=== PATIENT | female | born 1940 | race Caucasian/White ===

== ENCOUNTER 2022-05-27 13:03 | Outpatient (CLI) | payer MEDICARE, OTHER ==
--- NOTE | 2022-05-27 14:51 | Ultrasound Report ---
PROCEDURE: Duplex Lwr Ext Arterial Bilat INDICATIONS: BILTERAL LEG PAIN TECHNIQUE: Color and pulse Doppler interrogation was performed of both lower extremity arterial systems, with im age documentation. COMPARISON: None FINDINGS: Right lower extremity: Common femoral artery: 119 cm/sec, with triphasic flow. Deep femoral artery: 171 cm/sec, with triphasic flow. Proximal superficial femoral artery: 113 cm/sec, with triphasic flow. Mid superficial femoral artery: 157 cm/sec, with biphasic flow. Distal superficial femoral artery: 130 cm/sec, with biphasic flow. Popliteal artery: 171 cm/sec, with biphasic flow. Posterior tibial artery: 86 cm/sec, with biphasic flow. Anterior tibial artery/dorsalis pedis: 123 cm/sec, with biphasic flow. Franklin-scale imaging description: Proximal superficial femoral artery stent. Moderate diffuse plaque. Possible focal occlusion of the proximal/mid anterior tibial artery. Left lower extremity: Common femoral artery: 116 cm/sec, with triphasic flow. Deep femoral artery: 99 cm/sec, with triphasic flow. Proximal superficial femoral artery: 114 cm/sec, with triphasic flow. Mid superficial femoral artery: 234 cm/sec, with biphasic flow. Distal superficial femoral artery: 125 cm/sec, with biphasic flow. Popliteal artery: 119 cm/sec, with biphasic flow. Posterior tibial artery: 91 cm/sec, with biphasic flow. Anterior tibial artery/dorsalis pedis: 86 cm/sec, with biphasic flow. Franklin-scale imaging description: Severe diffuse plaque IMPRESSION: 1. Healing minimally significant stenosis within the left mid superficial femoral artery. 2. No significant right-sided outflow stenosis. Patent right proximal superficial femoral artery sten t. 3. Possible focal occlusion of the anterior tibial artery. Reviewed by: Raisa Delaney MD on 05/27/2022 2:50 PM PDT Approved by: Raisa Delaney MD on 05/27/2022 2:50 PM PDT Station ID: [id number]
== END 2022-05-27 13:04 | disposition home or self-care (01) ==
LOC: DI 13:03
PROVIDERS: ATTEND Nurse Practitioner
DX: I70.202 Unspecified atherosclerosis of native arteries of extremities, left leg (principal)
CPT/HCPCS: 93925

== ENCOUNTER 2022-11-20 10:30 | Outpatient (CLI) | payer MEDICARE, OTHER | END 2022-11-20 10:31 | disposition home or self-care (01) | LOC: MAC.INF 10:30 | PROVIDERS: ATTEND Nurse Practitioner | DX: R00.2 Palpitations (principal); R00.1 Bradycardia, unspecified; I45.4 Nonspecific intraventricular block; I45.89 Other specified conduction disorders | CPT/HCPCS: 93244 ==

== ENCOUNTER 2023-01-07 08:00 | Outpatient (CLI) | payer MEDICARE, OTHER ==
[2023-01-07 18:12] LABS: BACTERIAL VAGINOSIS DNA NEGATIVE (NEGATIVE); CANDIDA KRUSEI DNA NEGATIVE (NEGATIVE); TRICHOMONAS VAGINALIS DNA NEGATIVE (NEGATIVE)
[2023-01-07 18:13] LABS: CANDIDA GLABRATA DNA POSITIVE (NEGATIVE); CANDIDA GROUP DNA POSITIVE (NEGATIVE)
== END 2023-01-07 23:59 | disposition home or self-care (01) ==
LOC: LAB.WC 08:00
PROVIDERS: ATTEND Nurse Practitioner
DX: N89.8 Other specified noninflammatory disorders of vagina (principal)
CPT/HCPCS: 81514

== ENCOUNTER 2023-01-15 10:07 | Outpatient (CLI) | payer MEDICARE, OTHER ==
[2023-01-15 12:17] LABS: BASOPHILS # (AUTO) 0.1 10^3/uL (0.0-0.1); BASOPHILS % (AUTO) 0.8 %; EOSINOPHILS # (AUTO) 0.2 10^3/uL (0.0-0.7); EOSINOPHILS % (AUTO) 2.4 %; HCT - HEMATOCRIT 35.4 % (37.0-47.0); HGB - HEMOGLOBIN 11.5 g/dL (12.0-16.0); LYMPHOCYTES # (AUTO) 1.8 10^3/uL (1.5-3.5); LYMPHOCYTES % (AUTO) 19.9 %; MEAN CORPUSCULAR HEMOGLOBIN 32.3 pg (27.0-31.0); MEAN CORPUSCULAR HGB CONC 32.5 g/dL (32.0-36.0); MEAN CORPUSCULAR VOLUME 99.4 fL (81.0-99.0); MEAN PLATELET VOLUME 9.9 fL (7.9-10.8); MONOCYTES # (AUTO) 0.5 10^3/uL (0.0-1.0); MONOCYTES % (AUTO) 5.4 %; NEUTROPHILS # (AUTO) 6.6 10^3/uL (1.5-6.6); NEUTROPHILS % (AUTO) 71.1 %; PLT - PLATELET COUNT 236 10^3/uL (130-450); RED BLOOD COUNT 3.56 10^6/uL (4.20-5.40); RED CELL DISTRIBUTION WIDTH 15.9 % (12.0-15.0); WHITE BLOOD COUNT 9.2 x10^3/uL (4.8-10.8)
[2023-01-15 12:31] LABS: ESTIMATED AVERAGE GLUCOSE 189 mg/dL (70-100); HEMOGLOBIN A1c% 8.2 % (4.27-6.07)
[2023-01-15 12:46] LABS: ALBUMIN 4.2 g/dL (3.2-5.5); ALBUMIN/GLOBULIN RATIO 1.2 (1.0-2.2); BILIRUBIN,TOTAL 0.8 mg/dL (0.2-1.0); CALCIUM 10.2 mg/dL (8.5-10.3); CREATININE 1.8 mg/dL (0.4-1.0); POTASSIUM 4.7 mmol/L (3.5-5.0); TOTAL PROTEIN 7.7 g/dL (6.7-8.2)
[2023-01-15 12:58] LABS: CREATININE,URINE 113.6 mg/dL; MICROALBUMIN,URINE 6.7 mg/dL (0-300.0)
[2023-01-15 13:21] LABS: THYROID STIMULATING HORMONE 1.62 uIU/mL (0.34-5.60)
[2023-01-15 13:22] LABS: FREE T4 (FREE THYROXINE) 0.99 ng/dL (0.58-1.64)
[2023-01-15 13:24] LABS: FREE T3 2.98 pg/mL (2.5-3.9)
== END 2023-01-15 10:08 | disposition home or self-care (01) ==
LOC: LAB.N 10:07
PROVIDERS: ATTEND Family Medicine
DX: E11.22 Type 2 diabetes mellitus with diabetic chronic kidney disease (principal); N18.32 Chronic kidney disease, stage 3b; E11.42 Type 2 diabetes mellitus with diabetic polyneuropathy; R06.02 Shortness of breath; R00.2 Palpitations; G25.81 Restless legs syndrome; Z86.79 Personal history of other diseases of the circulatory system
CPT/HCPCS: 36415; 80053; 82043; 82570; 83036; 84439; 84443; 84481; 85025

== ENCOUNTER 2023-02-06 10:51 | Outpatient (CLI) | payer MEDICARE, OTHER | END 2023-02-06 10:52 | disposition home or self-care (01) | LOC: LAB.N 10:51 | PROVIDERS: ATTEND Nurse Practitioner | DX: Z53.9 Procedure and treatment not carried out, unspecified reason (principal) ==

== ENCOUNTER 2023-02-18 09:55 | Outpatient (CLI) | payer MEDICARE, OTHER ==
[2023-02-18 13:31] LABS: CHOL/HDL RATIO 2.2 (<4.4); CHOLESTEROL 105 mg/dL; HDL CHOLESTEROL 47 mg/dL; LDL CHOLESTEROL,CALCULATED 46 mg/dL; TRIGLYCERIDES 62 mg/dL; VLDL CHOLESTEROL 12 mg/dL
[2023-02-18 14:06] LABS: CREATININE,URINE 60.6 mg/dL; MICROALBUM/CREATININE RATIO,UR 13.2 ug/mg (<30.0); MICROALBUMIN,URINE 0.8 mg/dL (0-300.0)
[2023-02-18 14:49] LABS: ESTIMATED AVERAGE GLUCOSE 151 mg/dL (70-100); HEMOGLOBIN A1c% 6.9 % (4.27-6.07)
== END 2023-02-18 09:56 | disposition home or self-care (01) ==
LOC: LAB.N 09:55
PROVIDERS: ATTEND Nurse Practitioner
DX: E11.65 Type 2 diabetes mellitus with hyperglycemia (principal)
CPT/HCPCS: 36415; 80061; 82043; 82570; 83036; 83721

== ENCOUNTER 2023-04-02 09:33 | Outpatient (CLI) | payer MEDICARE, OTHER ==
--- NOTE | 2023-04-02 14:03 | XRAY Report ---
PROCEDURE: Knee 2 View RT INDICATIONS: LEG PAIN,BILATERAL TECHNIQUE: 2 views of the right knee(s) were acquired. COMPARISON: None. FINDINGS: Bones: Patient is status post prior right total knee arthroplasty and revision with slight genu valg um with weightbearing. No fractures or dislocations. No gross hardware loosening or failure. No susp icious bony lesions. Soft tissues: Small knee joint effusion. No suspicious soft tissue calcifications or masses. IMPRESSION: Prior right total knee arthroplasty. Mild genu valgum with weightbearing. No acute fracture or disloc ation. No gross hardware loosening or failure. Small joint effusion. Reviewed by: Alexandr Wang MD on 04/02/2023 2:02 PM PDT Approved by: Alexandr Wang MD on 04/02/2023 2:02 PM PDT Station ID: [id number]
--- NOTE | 2023-04-02 14:05 | XRAY Report ---
PROCEDURE: Lumbar Spine 2 View INDICATIONS: LEG PAIN,BILATERAL TECHNIQUE: 2 views of the lumbar spine were acquired. COMPARISON: None. FINDINGS: Bones: 5 [id number] vertebrae are present. Loss of disc height and degenerative endplate change s are noted throughout lumbar spine. Bilateral facet arthrosis in lower lumbar spine at L5-S1 level i s also seen. There is normal bony alignment. No vertebral body compression fractures. No suspicious bony lesions. There is prior bilateral total hip arthroplasty. Soft tissues: Overlying bowel gas pattern is normal. No suspicious soft tissue calcifications. 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 No acute compressi on fracture or spondylolisthesis. Reviewed by: Alexandr Wang MD on 04/02/2023 2:04 PM PDT Approved by: Alexandr Wang MD on 04/02/2023 2:04 PM PDT Station ID: [id number]
--- NOTE | 2023-04-02 14:08 | XRAY Report ---
PROCEDURE: Hip w/Pelvis 2-3V RT INDICATIONS: LEG PAIN,BILATERAL TECHNIQUE: AP pelvis with lateral view(s) of the right hip(s). COMPARISON: None. FINDINGS: Bones: There is significant osteopenia. Patient is status post prior bilateral total hip arthroplasty . Significantly increased radiolucency involving proximal portion of left femur adjacent to the prost hesis concerning for increasing osteolysis and possible hardware loosening. No definite acute fractur e or dislocation is seen. Soft tissues: No suspicious soft tissue calcifications or masses. IMPRESSION: Increased radiolucency involving proximal right femoral shaft prosthesis concerning for increased ost eolysis and possible hardware loosening. No definite fracture is seen. Diffuse osteopenia. Reviewed by: Alexandr Wang MD on 04/02/2023 2:06 PM PDT Approved by: Alexandr Wang MD on 04/02/2023 2:06 PM PDT Station ID: [id number]
== END 2023-04-02 09:34 | disposition home or self-care (01) ==
LOC: DI 09:33
PROVIDERS: ATTEND Nurse Practitioner
DX: M79.605 Pain in left leg (principal); M79.604 Pain in right leg; M85.88 Other specified disorders of bone density and structure, other site; M51.36 Other intervertebral disc degeneration, lumbar region; M25.461 Effusion, right knee; Z96.651 Presence of right artificial knee joint

== ENCOUNTER 2023-04-27 09:37 | Outpatient (CLI) | payer MEDICARE, OTHER ==
--- NOTE | 2023-04-27 12:27 | DEXA Report ---
PROCEDURE: Dexa Spine and/or Hip INDICATIONS: POST MENOPAUSAL TECHNIQUE: Dual energy x-ray absorptiometry (DXA) was performed on a [facility]. Regions measur ed are the AP Spine, femoral neck, and if needed forearm. COMPARISON: None. FINDINGS: Lumbar Spine: Bone Mineral Density 1.758 g/cm/cm,T score 4.8. Left Femoral Neck: Bone Mineral Density 0.780 g/cm/cm, T score -1.1. Left Hip: Cannot be up to mucosal bilateral prostheses. (T score greater or equal to -1.0: NORMAL) (T score from -1.1 to -2.4: OSTEOPENIA) (T score less than or equal to -2.5 to: OSTEOPOROSIS) Impression: By WHO criteria, this patient has low bone density (osteopenia). Patients with diagnosis of osteoporosis or osteopenia should have regular bone mineral density assess ment. For those eligible for Medicare, routine testing is allowed once every 2 years. Testing frequ ency can be increased for patients who have rapidly progressing disease or for those who are receivin g medical therapy to restore bone mass. Reviewed by: Jair Martin MD on 04/27/2023 12:26 PM PDT Approved by: Jair Martin MD on 04/27/2023 12:26 PM PDT Station ID: [id number]
== END 2023-04-27 09:38 | disposition home or self-care (01) ==
LOC: DI 09:37
PROVIDERS: ATTEND Nurse Practitioner
DX: Z78.0 Asymptomatic menopausal state (principal); M85.80 Other specified disorders of bone density and structure, unspecified site

== ENCOUNTER 2023-07-06 10:36 | Outpatient (CLI) | payer MEDICARE, OTHER ==
[2023-07-06 19:35] LABS: HGB - HEMOGLOBIN 12.4 g/dL (12.0-16.0)
[2023-07-06 19:39] LABS: BILIRUBIN,URINE NEGATIVE (NEGATIVE); GLUCOSE, URINE (UA) >=1000 mg/dL (NEGATIVE); KETONES,URINE (UA) NEGATIVE (NEGATIVE); LEUKOCYTE ESTERASE, URINE SMALL (NEGATIVE); NITRITE,URINE NEGATIVE (NEGATIVE); OCCULT BLOOD,URINE TRACE-INTA (NEGATIVE); PH,URINE 5.5 PH (5.0-7.5); PROTEIN,URINE NEGATIVE (NEGATIVE); UROBILINOGEN,URINE 0.2 (NORMAL) E.U./dL (NORMAL)
[2023-07-06 19:53] LABS: CLARITY,URINE HAZY (CLEAR)
[2023-07-06 19:56] LABS: CALCIUM 10.3 mg/dL (8.5-10.3); CREATININE 1.6 mg/dL (0.6-1.3); POTASSIUM 4.7 mmol/L (3.5-4.5)
[2023-07-06 19:58] LABS: CREATININE,URINE 50.2 mg/dL; MICROALBUM/CREATININE RATIO,UR 47.8 ug/mg (<30.0); MICROALBUMIN,URINE 2.4 mg/dL; PROTEIN/CREATININE RATIO,URINE 0.4 (<=0.2)
[2023-07-06 20:26] LABS: BACTERIA,URINE Many /HPF (None Seen); RBC,URINE 0-5 /HPF (0-5); SQUAMOUS EPITHELIAL CELL,UR RARE Squamous (<= Few); WBC,URINE >25 /HPF (0-5)
== END 2023-07-06 10:37 | disposition home or self-care (01) ==
LOC: LAB.N 10:36
PROVIDERS: ATTEND Internal Medicine Nephrology
DX: I12.9 Hypertensive chronic kidney disease with stage 1 through stage 4 chronic kidney disease, or unspecified chronic kidney disease (principal); E11.22 Type 2 diabetes mellitus with diabetic chronic kidney disease; N18.32 Chronic kidney disease, stage 3b; I99.9 Unspecified disorder of circulatory system
CPT/HCPCS: 36415; 80048; 81001; 81003; 82043; 82570; 84156; 85014; 85018; 87086; 87181

== ENCOUNTER 2023-09-24 10:50 | Outpatient (CLI) | payer MEDICARE, OTHER ==
[2023-09-24 17:44] LABS: BASOPHILS # (AUTO) 0.1 10^3/uL (0.0-0.1); BASOPHILS % (AUTO) 0.8 %; EOSINOPHILS # (AUTO) 0.2 10^3/uL (0.0-0.7); EOSINOPHILS % (AUTO) 2.8 %; HCT - HEMATOCRIT 36.1 % (37.0-47.0); HGB - HEMOGLOBIN 11.6 g/dL (12.0-16.0); LYMPHOCYTES # (AUTO) 1.6 10^3/uL (1.5-3.5); MEAN CORPUSCULAR HGB CONC 32.1 g/dL (32.0-36.0); MEAN CORPUSCULAR VOLUME 99.4 fL (81.0-99.0); MEAN PLATELET VOLUME 9.8 fL (7.9-10.8); MONOCYTES # (AUTO) 0.4 10^3/uL (0.0-1.0); NEUTROPHILS # (AUTO) 5.1 10^3/uL (1.5-6.6); NEUTROPHILS % (AUTO) 69.1 %; PLT - PLATELET COUNT 190 10^3/uL (130-450); RED BLOOD COUNT 3.63 10^6/uL (4.20-5.40); RED CELL DISTRIBUTION WIDTH 14.8 % (12.0-15.0); WHITE BLOOD COUNT 7.4 x10^3/uL (4.8-10.8)
[2023-09-24 18:00] LABS: ALBUMIN 4.4 g/dL (3.2-5.5); ALBUMIN/GLOBULIN RATIO 1.5 (1.0-2.2); BILIRUBIN,TOTAL 0.8 mg/dL (0.2-1.0); CALCIUM 10.2 mg/dL (8.5-10.3); CREATININE 2.2 mg/dL (0.6-1.3); POTASSIUM 4.4 mmol/L (3.5-4.5); TOTAL PROTEIN 7.3 g/dL (6.4-8.9)
[2023-09-24 18:11] LABS: CREATININE,URINE 111.6 mg/dL; MICROALBUM/CREATININE RATIO,UR 51.1 ug/mg (<30.0); MICROALBUMIN,URINE 5.7 mg/dL
[2023-09-24 18:12] LABS: THYROID STIMULATING HORMONE 1.03 uIU/mL (0.34-5.60)
[2023-09-24 20:04] LABS: ESTIMATED AVERAGE GLUCOSE 163 mg/dL (70-100); HEMOGLOBIN A1c% 7.3 % (4.27-6.07)
== END 2023-09-24 10:51 | disposition home or self-care (01) ==
LOC: LAB.N 10:50
PROVIDERS: ATTEND Nurse Practitioner
DX: E11.22 Type 2 diabetes mellitus with diabetic chronic kidney disease (principal); N18.32 Chronic kidney disease, stage 3b; E11.65 Type 2 diabetes mellitus with hyperglycemia; F41.9 Anxiety disorder, unspecified; F32.A Depression, unspecified
CPT/HCPCS: 36415; 80053; 82043; 82570; 83036; 84443; 85025

== ENCOUNTER 2023-12-23 10:28 | Outpatient (CLI) | payer MEDICARE, OTHER | END 2023-12-23 23:59 | disposition EMS.NT | LOC: EMS 10:28 | DX: Z03.89 Encounter for observation for other suspected diseases and conditions ruled out (principal) ==

== ENCOUNTER 2023-12-28 11:00 | Outpatient (CLI) | payer MEDICARE, OTHER ==
--- NOTE | 2023-12-28 14:48 | XRAY Report ---
PROCEDURE: Hip 2 View RT INDICATIONS: RIGHT HIP PAIN TECHNIQUE: 3 view(s) of the hip were acquired. COMPARISON: 04/02/2023 FINDINGS: Bones: Bilateral hip arthroplasties are present. Fractured screw of the lateral acetabular cup. Simil ar lucency of the acetabular cup mild lucency of the femoral stem. Healed right inferior pubic ramus fracture. Soft tissues: No suspicious soft tissue calcifications or masses. IMPRESSION: No acute bony abnormality. Right total hip arthroplasty. Similar lucency of the acetabular cup and mild lucency of the femoral s tem, concerning for loosening. There is a fractured screw of the lateral acetabular cup, unchanged fr om prior. Reviewed by: Sesar Vallejo MD on 12/28/2023 2:46 PM PDT Approved by: Sesar Vallejo MD on 12/28/2023 2:46 PM PDT Station ID: [id number]
== END 2023-12-28 23:59 | disposition home or self-care (01) ==
LOC: DI.WOS 11:00
PROVIDERS: ATTEND Orthopaedic Surgery
DX: T84.115A Breakdown (mechanical) of internal fixation device of left femur, initial encounter (principal); M25.511 Pain in right shoulder

== ENCOUNTER 2024-03-11 09:55 | Outpatient (CLI) | payer MEDICARE, OTHER | END 2024-03-11 23:59 | disposition EMS.NT | LOC: EMS 09:55 | DX: Z03.89 Encounter for observation for other suspected diseases and conditions ruled out (principal) ==

== ENCOUNTER 2024-03-12 23:49 | Outpatient (CLI) | payer MEDICARE, OTHER | END 2024-03-12 23:59 | disposition critical access hospital (66) | LOC: EMS 23:49 | DX: R53.1 Weakness (principal); M79.605 Pain in left leg; M79.604 Pain in right leg; W18.30XA Fall on same level, unspecified, initial encounter; Y92.009 Unspecified place in unspecified non-institutional (private) residence as the place of occurrence of the external cause; Z79.01 Long term (current) use of anticoagulants | CPT/HCPCS: A0425; A0429 ==

== ENCOUNTER 2024-03-13 00:05 | Emergency (ER) | payer MEDICARE, OTHER ==
--- NOTE | 2024-03-13 01:01 | XRAY Report ---
PROCEDURE: Knee 2V LT INDICATIONS: GLF knee pain TECHNIQUE: 2 views of the knee was obtained. COMPARISON: None FINDINGS: Bones: No fractures or dislocations. No suspicious bony lesions. Total knee prosthesis in good posi tion. Generalized decreased osseous mineralization present. Soft tissues: Small knee joint effusion. No suspicious soft tissue calcifications or masses. IMPRESSION: Total knee arthroplasty in good position. No fracture or hardware failure Reviewed by: Lamont Templeton MD on 03/13/2024 12:00 AM JUAN Approved by: Lamont Templeton MD on 03/13/2024 12:00 AM JUAN Station ID: [id number]
--- NOTE | 2024-03-13 01:53 | ED Physician Documentation ---
History of Present Illness - Stated complaint Stated Complaint: LEG WEAKNESS, GLF - Chief complaint Chief Complaint: Ext Problem - History obtained from History obtained from: Patient, Family (spouse) - Additonal information Additional information: HPI from patient as well as patient's spouse who is in ED at patient's bedside. VASILE. Patient has chronic right knee pain (years, per patient). She fell approximately 1.5 months ago, injuring her left knee and has had left knee pain since then, as well. She says she fell one or two more times since then, each time worsening bilateral knee pain which, in turn, has resulted in increasing difficulty with ambulation (due to pain although she also says she has BLE weakness, as well). Tonight, she was standing and felt she couldn't support herself due to the pain and weakness BLE and was helped to ground by he . Between the two of them, they were unable to get patient back off of the floor and thus he called 911. The pain in both knees is exacerbated with movement (along with the exacerbation with weight-bearing). indicates that they are waiting to hear from [facility] scheduling regarding MRI of her lower back. PD PAST MEDICAL HISTORY - Past Medical History Cardiovascular: Other Neuro: TIA - Past Surgical History Ortho: Hip replacement, Knee replacement - Present Medications Home Medications: Ambulatory Orders Medication Instructions Recorded Confirmed Ascorbic Acid [Vitamin C] 1,000 mg PO DAILY 05/02/22 11/24/23 Calcium Carbonate/Vitamin D3 1 each PO BID 05/02/22 11/24/23 [Calcium 500 mg Chewable Tablet] DULoxetine [Cymbalta] 30 mg ORAL DAILY 05/02/22 11/24/23 Fluticasone/Umeclidin/Vilanter 1 each IH DAILY 05/02/22 11/24/23 [Trelegy Ellipta 200-62.5-25] Glimepiride [Amaryl] 2 mg PO 0800 05/02/22 11/24/23 Glipizide [Glipizide ER] 5 mg PO AC 05/02/22 11/24/23 Losartan [Cozaar] 50 mg PO BID 05/02/22 11/24/23 Multivitamin 1 tab ORAL DAILY 05/02/22 11/24/23 Omeprazole 40 mg ORAL DAILY 05/02/22 11/24/23 Pioglitazone [Actos] 30 mg PO DAILY 05/02/22 11/24/23 Simvastatin [Zocor] 20 mg PO HS 05/02/22 11/24/23 Tetrahydrozoline HCl [Eye Drops] 15 ml OP QID 05/02/22 11/24/23 Zaleplon 5 mg PO HS 05/02/22 11/24/23 rOPINIRole [Requip] 1 mg PO BID 05/02/22 11/24/23 Aspirin [Aspirin EC] 81 mg PO UD 10/14/22 11/24/23 Atorvastatin Calcium [Lipitor] 80 mg PO DAILY 10/14/22 11/24/23 Clopidogrel [Plavix] 75 mg PO BID 10/14/22 11/24/23 Spironolactone [Aldactone] 25 mg PO DAILY 10/14/22 11/24/23 carvediloL [Coreg] 6.25 mg PO DAILY 10/14/22 11/24/23 - Allergies Allergies/Adverse Reactions: Allergies Allergy/AdvReac Type Severity Reaction Status Date / Time No Known Drug Allergies Allergy Verified 03/13/24 00:16 - Social History Smoking Status: Former smoker PD ED PE NORMAL - Vitals Vital signs reviewed: Yes - General General: Alert and oriented X 3, Other (appears to be in waxing and waning painful distress at times during H+P even when lying still) - Neck Neck: No bony TTP - Cardiac Cardiac: RRR, No murmur - Respiratory Respiratory: No respiratory distress, Clear bilaterally - Abdomen Abdomen: Soft, Non tender PD ED PE EXPANDED - Extremities Extremities: Tenderness (prepatellar TTP left knee), Limited ROM (bilateral knees: nearly any flexion (from full extension) elicits obvious painful distress), Swelling (left knee ), Pedal edema bilateral, Pedal Pulses Present, Other (bilateral hips are without TTP) Results - Vitals Vitals: Vital Signs - 24 hr 03/13/24 03/13/24 03/13/24 00:09 02:30 04:00 Temperature 36.6 C Heart Rate 76 71 62 Respiratory 14 16 18 Rate Blood Pressure 143/39 H 141/59 H 116/52 L O2 Saturation 99 100 99 03/13/24 06:00 Temperature Heart Rate 60 Respiratory 16 Rate Blood Pressure 108/45 L O2 Saturation 99 Oxygen O2 Source Room air - Labs Labs: Laboratory Tests 06/03/13/24 03/13/24 02:12 02:17 02:17 WBC 9.4 RBC 3.49 L Hgb 10.8 L Hct 33.1 L MCV 94.8 MCH 30.9 MCHC 32.6 RDW 15.2 H Plt Count 162 MPV 8.8 Neut # (Auto) 7.4 H Lymph # (Auto) 1.0 L [place] # (Auto) 0.7 Eos # (Auto) 0.3 Baso # (Auto) 0.1 Absolute Nucleated RBC 0.00 Nucleated RBC % 0.0 Sodium 141 Potassium 3.2 L Chloride 103 Carbon Dioxide 30 Anion Gap 8.0 BUN 25 H Creatinine 1.6 H Estimated GFR (MDRD) 31 L Glucose 57 L* POC Whole Bld Glucose 58 L* Calcium 10.2 03/13/24 03/13/24 03/13/24 02:49 03:12 03:46 WBC RBC Hgb Hct MCV MCH MCHC RDW Plt Count MPV Neut # (Auto) Lymph # (Auto) [place] # (Auto) Eos # (Auto) Baso # (Auto) Absolute Nucleated RBC Nucleated RBC % Sodium Potassium Chloride Carbon Dioxide Anion Gap BUN Creatinine Estimated GFR (MDRD) Glucose POC Whole Bld Glucose 72 77 91 Calcium - Rads (name of study) left knee xrays Relevant Findings:: Prelim report reviewed, See rad report PD Medical Decision Making - ED course Complexity details: reviewed results, re-evaluated patient, considered differential, d/w patient, d/w family ED course: Patient is given 2 tablets of Vicodin which did result in improvement in her pain at rest. Unfortunately, there was no significant change in the limitation in range of motion of both of her knees and thus, when the ED RN attempted to have patient stand at the bedside, she was unable to even have the patient swing her legs over the side of the bed due to significant bilateral knee pain with any such attempt. Basic blood work is without concerning result except for blood sugar . Mild hypokalemia is noted (3.2) which is noncontributory to patient's presentation at this time. Abnormalities in hemoglobin/hematocrit, BUN and creatinine are comparable to previous results. Of note, patient is diabetic and she is found to have a blood sugar of 57 (patient is diabetic). She is given juice and ricardo crackers and subsequent FSBS were 72, 77, and 91. At this point, I do not appreciate any indications for hospital admission but she is not appropriate for discharge due to inability to even stand. I have entered an order for SW consult which will not be available until after my shift is over; care of patient is thus turned over to oncoming ED physician (Dr. Monroy) Departure - Departure Forms: PCP List
[2024-03-13] MEDS: HYDROcod/ACETAM 5/325 MG TABLET PO STA ×2 (02:18→03:09)
[2024-03-13 02:24] LABS: BASOPHILS # (AUTO) 0.1 10^3/uL (0.0-0.1); BASOPHILS % (AUTO) 0.5 %; EOSINOPHILS # (AUTO) 0.3 10^3/uL (0.0-0.7); EOSINOPHILS % (AUTO) 2.7 %; HCT - HEMATOCRIT 33.1 % (37.0-47.0); HGB - HEMOGLOBIN 10.8 g/dL (12.0-16.0); LYMPHOCYTES % (AUTO) 10.6 %; MEAN CORPUSCULAR HEMOGLOBIN 30.9 pg (27.0-31.0); MEAN CORPUSCULAR HGB CONC 32.6 g/dL (32.0-36.0); MEAN CORPUSCULAR VOLUME 94.8 fL (81.0-99.0); MEAN PLATELET VOLUME 8.8 fL (7.9-10.8); MONOCYTES # (AUTO) 0.7 10^3/uL (0.0-1.0); NEUTROPHILS # (AUTO) 7.4 10^3/uL (1.5-6.6); NEUTROPHILS % (AUTO) 78.8 %; PLT - PLATELET COUNT 162 10^3/uL (130-450); RED BLOOD COUNT 3.49 10^6/uL (4.20-5.40); RED CELL DISTRIBUTION WIDTH 15.2 % (12.0-15.0); WHITE BLOOD COUNT 9.4 x10^3/uL (4.8-10.8)
[2024-03-13 02:46] LABS: CALCIUM 10.2 mg/dL (8.5-10.3); CREATININE 1.6 mg/dL (0.6-1.3); POTASSIUM 3.2 mmol/L (3.5-4.5)
[2024-03-13] MEDS: DEXAMETHASONE 10 MG/ML VIAL IV STA (07:37)
[2024-03-13] MEDS: KETOROLAC 30 MG/ML VIAL IVP STA (07:38)
[2024-03-13] MEDS: HYDROmorphone 1 MG/ML CARPUJECT IVP STA (07:38)
[2024-03-13] MEDS: DEXTROSE 50% ABBOJECT 25 GM/50 ML SYRINGE IVP STA (09:02)
[2024-03-13] MEDS: DEXTROSE 10% 1,000 ML IV STA (09:20)
--- NOTE | 2024-03-13 11:56 | ED Physician Documentation ---
ED Addendum - Addendum Addendum: 03/13/24 11:54 The patient was signed out to me at change of shift, pending social work evaluation after Priem presenting being in pain and not being able to get around well at home. Social work did evaluate the patient found she actually has only 1 day a week where she does not have help and even then she already has a motorized scooter at home and a walker. She has to walk 5 steps when she gets to the bathroom from her motorized scooter and be able to get herself up and down. The social work worker reported that the family is purchasing a bedside commode for the patient so she will Abilio have to do this much. A home health order was placed as per his social work's request including for nursing, home health aide, PT OT, and social work. The family is willing to take the patient home and the patient was amenable to going home. She did require treatment in the emergency department for an episode of hypoglycemia at 41. The patient remained alert and coherent during this time. She was given D10 which did bring her sugar into the 300s quickly. She was given D10 because there is a nationwide shortage of D50 and we have then left in the hospital except in the crash cart. I have advised the patient family that she will need to follow-up with her primary doctor if she is repeatedly getting low blood sugars. They expressed understanding. We have discussed the usual indications for return. Final impression: 1. Hypoglycemia 2. Chronic pain 3. Generalized weakness Disposition: Discharged home in stable condition with home health orders. 03/13/24 11:55
[2024-03-13 13:43] VITALS: BP 111/52; O2SAT 94
== END 2024-03-13 13:46 | disposition home or self-care (01) ==
LOC: EDUNIT# → ED 00:05
DX: M25.562 Pain in left knee (principal); W18.39XA Other fall on same level, initial encounter; E11.649 Type 2 diabetes mellitus with hypoglycemia without coma; Z79.84 Long term (current) use of oral hypoglycemic drugs; G89.29 Other chronic pain; R53.1 Weakness; Z86.73 Personal history of transient ischemic attack (TIA), and cerebral infarction without residual deficits; Z79.899 Other long term (current) drug therapy
CPT/HCPCS: 36415; 73560; 80048; 85025; 96374; 96375; 99284; 99285; A9270; J1170

== ENCOUNTER 2024-03-17 11:21 | Outpatient (CLI) | payer MEDICARE, OTHER | END 2024-03-17 11:22 | disposition critical access hospital (66) | LOC: EMS 11:21 | DX: S00.01XA Abrasion of scalp, initial encounter (principal); R53.83 Other fatigue; R53.1 Weakness; W18.39XA Other fall on same level, initial encounter; Y92.481 Parking lot as the place of occurrence of the external cause; Z79.02 Long term (current) use of antithrombotics/antiplatelets; Z79.82 Long term (current) use of aspirin | CPT/HCPCS: A0425; A0429 ==

== ENCOUNTER 2024-03-17 11:40 | Emergency (ER) | payer MEDICARE, OTHER ==
--- NOTE | 2024-03-17 12:06 | ED Physician Documentation ---
PD HPI HEAD INJURY - Stated complaint Stated Complaint: GLF - Chief complaint Chief Complaint: Trauma Hd/Nk - History obtained from History obtained from: Patient - Additional information Additional information: 83-year-old female presents after a fall. The patient has a history of chronic bilateral knee pain and multiple prior falls. Today she was trying to get her walker out of her trunk and lost her balance and fell. She fell down onto her back and hit the back of her head on the ground. She did not lose consciousness, she had no prodromal symptoms no dizziness or chest pain, no shortness of breath. She was evaluated by EMS and brought in for headache, neck pain, and fall. She states she has otherwise been feeling well, she has been trying to stay well-hydrated, states her blood sugars have been about a bit low but otherwise doing okay. She lives at home with multiple different family members and also has assistance, PT OT etc. ordered. Review of Systems Constitutional: reports: Reviewed and negative Eyes: reports: Reviewed and negative Ears: reports: Reviewed and negative Nose: reports: Reviewed and negative Throat: reports: Reviewed and negative Cardiac: reports: Reviewed and negative Respiratory: reports: Reviewed and negative GI: reports: Reviewed and negative : reports: Reviewed and negative Skin: reports: Abrasion (s) Neurologic: reports: Headache, Head injury. denies: Syncope, Seizure, Confused, Altered mental status, LOC PD PAST MEDICAL HISTORY - Past Medical History Past Medical History: Yes Cardiovascular: Congestive heart failure, Hypertension, Coronary artery disease, Peripheral Vascular Disease, [place], Other Respiratory: COPD, Shortness of breath Neuro: TIA, Peripheral neuropathy Endocrine/Autoimmune: Type 2 diabetes GI: GERD HEAD OF BIOLOGY: None : Incontinence, Renal insuffiency, Other Psych: Depression, Anxiety Musculoskeletal: Chronic back pain, Other Derm: None - Past Surgical History Past Surgical History: Yes Ortho: Hip replacement, Knee replacement Cardiovascular: Angioplasty, Other - Present Medications Home Medications: Ambulatory Orders Medication Instructions Recorded Confirmed Ascorbic Acid [Vitamin C] 1,000 mg PO DAILY 05/02/22 11/24/23 DULoxetine [Cymbalta] 30 mg ORAL DAILY 05/02/22 11/24/23 Losartan [Cozaar] 50 mg PO DAILY 05/02/22 03/14/24 Multivitamin 1 tab ORAL DAILY 05/02/22 03/14/24 Tetrahydrozoline HCl [Eye Drops] 15 ml OP QID 05/02/22 03/14/24 Zaleplon 5 mg PO HS 05/02/22 03/14/24 rOPINIRole [Requip] 1 - 2 mg PO BID 05/02/22 03/14/24 Aspirin [Aspirin EC] 81 mg PO UD 10/14/22 03/14/24 Atorvastatin Calcium [Lipitor] 80 mg PO DAILY 10/14/22 03/14/24 Clopidogrel [Plavix] 75 mg PO DAILY 10/14/22 03/14/24 Spironolactone [Aldactone] 25 mg PO BID 10/14/22 03/14/24 Cholecalciferol (Vitamin D3) 125 mcg PO DAILY 03/14/24 03/14/24 [D3-5000] Empagliflozin [Jardiance] 25 mg PO DAILY 03/14/24 03/14/24 Fluticasone/Umeclidin/Vilanter 1 inh IH DAILY 03/14/24 03/14/24 [Trelegy Ellipta 100-62.5-25] Gabapentin [Neurontin] 200 mg PO HS 03/14/24 03/14/24 Insulin Aspart Prot/Insuln Asp 35 - 45 units SUBQ BID 03/14/24 03/14/24 [Novolog Mix 70-30 Flexpen] Nitroglycerin [Nitrostat] 0.4 mg SL [id number] 03/14/24 03/14/24 Pantoprazole [Protonix] 40 mg PO DAILY 03/14/24 03/14/24 Semaglutide [Ozempic] 1 mg SQ Q7D 03/14/24 03/14/24 Losartan [Cozaar] 50 mg PO DAILY #30 tablet 03/17/24 carvediloL [Coreg] 3.125 mg PO BID #60 tablet 03/17/24 - Allergies Allergies/Adverse Reactions: Allergies Allergy/AdvReac Type Severity Reaction Status Date / Time No Known Drug Allergies Allergy Verified 03/17/24 11:51 - Social History Does the pt smoke?: No Smoking Status: Never smoker Does the pt drink ETOH?: No Does the pt have substance abuse?: No - Immunizations Immunizations are current?: Yes - POLST Patient has POLST: No PD ED PE NORMAL - Vitals Vital signs reviewed: Yes - General General: Alert and oriented X 3, No acute distress, Well developed/nourished - HEENT HEENT: Atraumatic, Moist mucous membranes, Pharynx benign - Neck Neck: Supple, no meningeal sign, No JVD, Other (Generalized neck tenderness) - Cardiac Cardiac: RRR, No murmur - Respiratory Respiratory: No respiratory distress, Clear bilaterally - Abdomen Abdomen: Normal bowel sounds, Soft, Non tender, Non distended - Female Female : Deferred - Back Back: No CVA TTP, No spinal TTP - Derm Derm: Normal color, Warm and dry, No rash - Extremities Extremities: No deformity, No tenderness to palpate, Normal ROM s pain, No edema, No calf tenderness / cord Results - Vitals Vitals: Vital Signs - 24 hr 03/17/24 03/17/24 03/17/24 11:47 11:51 11:56 Temperature 36.5 C 36.2 C L Heart Rate 63 65 59 L Respiratory 15 17 17 Rate Blood Pressure 108/48 L 104/52 L 104/56 L O2 Saturation 99 98 98 03/17/24 03/17/24 03/17/24 12:04 12:14 13:59 Temperature Heart Rate 63 59 L Respiratory 18 17 16 Rate Blood Pressure 109/55 L O2 Saturation 96 97 03/17/24 03/17/24 03/17/24 14:07 15:35 17:00 Temperature Heart Rate 62 62 Respiratory 17 15 Rate Blood Pressure 92/58 L 101/74 89/43 L O2 Saturation 97 98 03/17/24 17:40 Temperature Heart Rate Respiratory 18 Rate Blood Pressure O2 Saturation Oxygen O2 Source Room air - EKG (time done) No standard instances EKG releavant findings:: EKG personally interpreted by author of this note. Relevant findings are: Rate: Rate (enter#) (62) Rhythm: NSR Intervals: Normal NE, RBBB QRS: Normal Ischemia: Normal ST segments Compare to prior EKG: Unchanged from prior EKG Computer interpretation: Agree with computer - Labs Labs: Laboratory Tests 03/17/24 03/17/24 03/17/24 11:49 11:49 15:49 WBC 9.1 RBC 3.21 L Hgb 9.8 L Hct 30.8 L MCV 96.0 MCH 30.5 MCHC 31.8 L RDW 15.4 H Plt Count 195 MPV 9.6 Neut # (Auto) 7.3 H Lymph # (Auto) 1.0 L [place] # (Auto) 0.5 Eos # (Auto) 0.4 Baso # (Auto) 0.0 Absolute Nucleated RBC 0.00 Nucleated RBC % 0.0 Sodium 141 Potassium 3.3 L Chloride 107 Carbon Dioxide 28 Anion Gap 6.0 BUN 54 H Creatinine 2.1 H Estimated GFR (MDRD) 23 L Glucose 60 L* POC Whole Bld Glucose 74 Lactic Acid Calcium 9.6 Total Bilirubin 1.0 AST 15 ALT 16 Alkaline Phosphatase 69 Total Protein 6.2 L Albumin 3.4 Globulin 2.8 Albumin/Globulin Ratio 1.2 Lipase 44 Urine Color Urine Clarity Urine pH Ur Specific [place] Urine Protein Urine Glucose (UA) Urine Ketones Urine Occult Blood Urine Nitrite Urine Bilirubin Urine Urobilinogen Ur Leukocyte Esterase Urine RBC Urine WBC Urine WBC Clumps Ur Squamous Epith Cells Urine Bacteria Ur Microscopic Review Urine Culture Comments 03/17/24 03/17/24 03/17/24 16:45 17:26 17:50 WBC RBC Hgb Hct MCV MCH MCHC RDW Plt Count MPV Neut # (Auto) Lymph # (Auto) [place] # (Auto) Eos # (Auto) Baso # (Auto) Absolute Nucleated RBC Nucleated RBC % Sodium Potassium Chloride Carbon Dioxide Anion Gap BUN Creatinine Estimated GFR (MDRD) Glucose POC Whole Bld Glucose 153 H Lactic Acid 1.6 Calcium Total Bilirubin AST ALT Alkaline Phosphatase Total Protein Albumin Globulin Albumin/Globulin Ratio Lipase Urine Color LIGHT YELLOW Urine Clarity HAZY Urine pH 5.5 Ur Specific [place] 1.010 Urine Protein NEGATIVE Urine Glucose (UA) 100 H Urine Ketones NEGATIVE Urine Occult Blood MODERATE H Urine Nitrite NEGATIVE Urine Bilirubin NEGATIVE Urine Urobilinogen 0.2 (NORMAL) Ur Leukocyte Esterase LARGE H Urine RBC 0-5 Urine WBC 11-25 H Urine WBC Clumps PRESENT Ur Squamous Epith Cells FEW Squamous Urine Bacteria Many H Ur Microscopic Review INDICATED Urine Culture Comments INDICATED Departure - Departure Clinical Impression: Fall from ground level, Anemia, Hypoglycemia Condition: Good Prescriptions: carvediloL [Coreg] 3.125 mg PO BID #60 tablet Losartan [Cozaar] 50 mg PO DAILY #30 tablet Comments: Please decrease carvedilol to 3.125mg BID Decrease Losartan to 50mg BID Decrease your insulin to 30u before breakfast and 30u before lunch. If you glucose continues to be low, decrease by 5u daily. Schedule a follow up with PCP as soon as possible to go over your medications and make more permanent adjustments. Forms: PCP List
[2024-03-17 12:27] LABS: BASOPHILS % (AUTO) 0.4 %; EOSINOPHILS # (AUTO) 0.4 10^3/uL (0.0-0.7); HCT - HEMATOCRIT 30.8 % (37.0-47.0); HGB - HEMOGLOBIN 9.8 g/dL (12.0-16.0); LYMPHOCYTES % (AUTO) 10.5 %; MEAN CORPUSCULAR HEMOGLOBIN 30.5 pg (27.0-31.0); MEAN CORPUSCULAR HGB CONC 31.8 g/dL (32.0-36.0); MEAN PLATELET VOLUME 9.6 fL (7.9-10.8); MONOCYTES # (AUTO) 0.5 10^3/uL (0.0-1.0); NEUTROPHILS # (AUTO) 7.3 10^3/uL (1.5-6.6); NEUTROPHILS % (AUTO) 79.8 %; PLT - PLATELET COUNT 195 10^3/uL (130-450); RED BLOOD COUNT 3.21 10^6/uL (4.20-5.40); RED CELL DISTRIBUTION WIDTH 15.4 % (12.0-15.0); WHITE BLOOD COUNT 9.1 x10^3/uL (4.8-10.8)
[2024-03-17 13:03] LABS: ALBUMIN 3.4 g/dL (3.2-5.5); ALBUMIN/GLOBULIN RATIO 1.2 (1.0-2.2); CALCIUM 9.6 mg/dL (8.5-10.3); CREATININE 2.1 mg/dL (0.6-1.3); POTASSIUM 3.3 mmol/L (3.5-4.5); TOTAL PROTEIN 6.2 g/dL (6.4-8.9)
--- NOTE | 2024-03-17 13:33 | CT Report ---
PROCEDURE: Head WO INDICATIONS: fall TECHNIQUE: Noncontrast 4.5 mm thick angled axial sections acquired from the foramen magnum to the vertex. For r adiation dose reduction, the following was used: automated exposure control, adjustment of mA and/or kV according to patient size. COMPARISON: None. FINDINGS: Image quality: Excellent. CSF spaces: Basal cisterns are patent. No extra-axial fluid collections. Ventricles are normal in size and shape. Brain: No midline shift. Small incidental calcified meningioma, right frontal region. No associated mass effect. No other masses. Mild hypodensities in the deep white matter most likely represent mild small vessel ischemic change. Age-related volume loss. Intracranial carotid calcifications. Franklin-whit e matter interface is normal. Skull and face: Calvarium and visualized facial bones are intact, without suspicious lesions. Sinuses: Visualized sinuses and mastoids are clear. IMPRESSION: No acute intracranial pathology. Deep white matter hypodensities most likely represent mild small ves reji ischemic change. Comment: If clinically suspect acute stroke, consider MRI.. Reviewed by: Alban Wallace MD on 03/17/2024 1:32 PM PDT Approved by: Alban Wallace MD on 03/17/2024 1:32 PM PDT Station ID: [id number]
--- NOTE | 2024-03-17 13:37 | CT Report ---
PROCEDURE: Cervical Spine WO INDICATIONS: fall TECHNIQUE: Noncontrast 3 mm thick sections acquired from the skull base to the T4 level. Sagittal and coronal r eformats were then constructed. For radiation dose reduction, the following was used: automated exp osure control, adjustment of mA and/or kV according to patient size. COMPARISON: None. FINDINGS: Image quality: Excellent. Bones: No fractures or dislocations. Visualized superior ribs are intact. Cervical spondylosis. Mu ltilevel disc height loss and posterior disc osteophyte complexes. There is a degree of canal stenosi s at C4-C5, C5-C6, and C6-C7. There is multilevel bony foraminal narrowing. Soft tissues: Prevertebral soft tissues are normal in thickness. No paravertebral hematomas. No ap ical pneumothoraces. IMPRESSION: 1. No acute cervical fracture or dislocation. 2. Cervical spondylosis with multilevel canal stenosis and foraminal stenosis. Reviewed by: Alban Wallace MD on 03/17/2024 1:36 PM PDT Approved by: Alban Wallace MD on 03/17/2024 1:36 PM PDT Station ID: [id number]
[2024-03-17] MEDS: SODIUM CHLORIDE 0.9% 500 ML IV STA (13:56)
[2024-03-17] MEDS: DEXTROSE 50% ABBOJECT 25 GM/50 ML SYRINGE IVP STA (16:17)
[2024-03-17 18:02] LABS: BILIRUBIN,URINE NEGATIVE (NEGATIVE); GLUCOSE, URINE (UA) 100 mg/dL (NEGATIVE); KETONES,URINE (UA) NEGATIVE (NEGATIVE); LEUKOCYTE ESTERASE, URINE LARGE (NEGATIVE); NITRITE,URINE NEGATIVE (NEGATIVE); OCCULT BLOOD,URINE MODERATE (NEGATIVE); PH,URINE 5.5 PH (5.0-7.5); PROTEIN,URINE NEGATIVE (NEGATIVE); UROBILINOGEN,URINE 0.2 (NORMAL) E.U./dL (NORMAL)
[2024-03-17 18:03] LABS: CLARITY,URINE HAZY (CLEAR)
[2024-03-17 18:10] LABS: BACTERIA,URINE Many /HPF (None Seen); RBC,URINE 0-5 /HPF (0-5); SQUAMOUS EPITHELIAL CELL,UR FEW Squamous (<= Few); WBC CLUMPS,URINE PRESENT
[2024-03-17] MEDS: cefTRIAXone 1 GM in SODIUM CHLORIDE 0.9% MINIBAG 100 ML IV STA (18:18)
--- NOTE | 2024-03-17 18:26 | XRAY Report ---
PROCEDURE: Chest 1V INDICATIONS: chest pain TECHNIQUE: One view of the chest was acquired. COMPARISON: 05/04/2022 FINDINGS: Surgical changes and devices: None. Lungs and pleura: Mild diffuse interstitial prominence. Small bilateral pleural effusions. Mild williams hilar airway thickening. Suggestion of mild vascular congestion. Mediastinum: Mediastinal contours appear normal. Heart size is enlarged. Bones and chest wall: No suspicious bony lesions. Overlying soft tissues appear unremarkable. IMPRESSION: Cardiomegaly with findings suggestive of early/mild pulmonary edema/CHF. A concurrent infectious or i nflammatory process not excluded if clinically appropriate. No dense consolidations. Reviewed by: Dom Gilbert MD on 03/17/2024 6:25 PM PDT Approved by: Dom Gilbert MD on 03/17/2024 6:25 PM PDT Station ID: [id number]
[2024-03-17 19:26] LABS: HCT - HEMATOCRIT 32.2 % (37.0-47.0); HGB - HEMOGLOBIN 10.2 g/dL (12.0-16.0)
[2024-03-17 19:45] LABS: CALCIUM 9.5 mg/dL (8.5-10.3); CREATININE 1.9 mg/dL (0.6-1.3); POTASSIUM 3.2 mmol/L (3.5-4.5)
[2024-03-17] MEDS: POTASSIUM CHLORIDE 20 MEQ TABLET PO STA (20:11)
[2024-03-17 20:47] VITALS: BP 124/68; O2SAT 99
== END 2024-03-17 20:43 | disposition home or self-care (01) ==
LOC: ED 11:40
DX: S09.90XA Unspecified injury of head, initial encounter (principal); M54.2 Cervicalgia; W18.30XA Fall on same level, unspecified, initial encounter; Z91.81 History of falling; R29.6 Repeated falls; E11.22 Type 2 diabetes mellitus with diabetic chronic kidney disease; I13.0 Hypertensive heart and chronic kidney disease with heart failure and stage 1 through stage 4 chronic kidney disease, or unspecified chronic kidney disease; N18.9 Chronic kidney disease, unspecified; I50.9 Heart failure, unspecified; D63.1 Anemia in chronic kidney disease; J44.9 Chronic obstructive pulmonary disease, unspecified; I25.10 Atherosclerotic heart disease of native coronary artery without angina pectoris; E11.649 Type 2 diabetes mellitus with hypoglycemia without coma; E11.42 Type 2 diabetes mellitus with diabetic polyneuropathy; R79.89 Other specified abnormal findings of blood chemistry; Z79.899 Other long term (current) drug therapy; Z79.02 Long term (current) use of antithrombotics/antiplatelets; Z79.82 Long term (current) use of aspirin; Z79.4 Long term (current) use of insulin; Z79.84 Long term (current) use of oral hypoglycemic drugs; Z79.51 Long term (current) use of inhaled steroids
CPT/HCPCS: 36415; 70450; 71045; 72125; 80048; 80053; 81001; 83605; 83690; 83880; 84484; 85014; 85018; 85025; 87040; 87077; 87086; 87181; 93005; 96361; 96365; 96375; 99284; A9270; 81003

== ENCOUNTER 2024-04-13 10:40 | Outpatient (CLI) | payer MEDICARE, OTHER ==
[2024-04-13 18:23] LABS: ALBUMIN 3.8 g/dL (3.2-5.5); ALBUMIN/GLOBULIN RATIO 1.2 (1.0-2.2); ALKALINE PHOSPHATASE 102 IU/L (42-121); ALT ALANINE AMINOTRANSFERASE 8 IU/L (10-60); AST ASPARTATE AMINOTRANSFERASE 11 IU/L (10-42); BILIRUBIN,TOTAL 0.7 mg/dL (0.2-1.0); BUN - BLOOD UREA NITROGEN 19 mg/dL (6-20); CALCIUM 10.1 mg/dL (8.5-10.3); CARBON DIOXIDE - CO2 27 mmol/L (21-32); CHLORIDE 107 mmol/L (101-111); CHOLESTEROL 111 mg/dL; CREATININE 1.4 mg/dL (0.6-1.3); GFR - MDRD 36 (>89); GLUCOSE 164 mg/dL (74-104); HDL CHOLESTEROL 37 mg/dL; LDL CHOLESTEROL,CALCULATED 57 mg/dL; LDL/HDL RATIO 1.5 (<4.4); POTASSIUM 3.8 mmol/L (3.5-4.5); SODIUM 141 mmol/L (135-145); TOTAL PROTEIN 6.9 g/dL (6.4-8.9); TRIGLYCERIDES 87 mg/dL; VLDL CHOLESTEROL 17 mg/dL
[2024-04-13 22:06] LABS: ESTIMATED AVERAGE GLUCOSE 105 mg/dL (70-100); HEMOGLOBIN A1c% 5.3 % (4.27-6.07)
== END 2024-04-13 10:41 | disposition home or self-care (01) ==
LOC: LAB.N 10:40
PROVIDERS: ATTEND Nurse Practitioner
DX: E11.22 Type 2 diabetes mellitus with diabetic chronic kidney disease (principal); E11.8 Type 2 diabetes mellitus with unspecified complications; E78.2 Mixed hyperlipidemia
CPT/HCPCS: 36415; 80053; 80061; 82043; 82570; 83036; 83721

== ENCOUNTER 2024-05-27 15:16 | Outpatient (CLI) | payer MEDICARE, OTHER | END 2024-05-27 23:59 | disposition EMS.NT | LOC: EMS 15:16 | DX: Z03.89 Encounter for observation for other suspected diseases and conditions ruled out (principal); Z91.81 History of falling ==

== ENCOUNTER 2024-06-05 18:39 | Emergency (ER) | payer MEDICARE, OTHER ==
--- NOTE | 2024-06-05 20:39 | ED Physician Documentation ---
History of Present Illness - Stated complaint Stated Complaint: GLF,LT LEG PX - Chief complaint Chief Complaint: Ext Problem - History obtained from History obtained from: Patient - Additonal information Additional information: The patient comes to the emergency department with chief complaint of ground- level fall and left lower extremity pain. She states the pain is mainly in her left knee, on the medial aspect. She states that she normally has low back pain which radiates down her left buttock and leg, but usually does not affect her knee. She denies any worsened hip pain. She has been told she probably needs to have a left hip replacement. She saw a medicaid billing specialist at the end of last week and he told her she needed a cortisone shot in her spine and some pain management, but declined to do this himself. The patient was referred to pain specialist and told to see her primary doctor for the cortisone shot, but the patient Stelling. She has not made an appointment with either yet. She states that the fall today happened because she was outside walking with her walker and tried to turn the walker around and her legs just gave out. She thinks she hit her head on the ground but did not lose consciousness. She denies any neck pain or new back pain. No rib pain. No other extremity pain. No other complaints at this time. 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 : Incontinence, Renal insuffiency, Other Psych: Depression, Anxiety Musculoskeletal: Chronic back pain, Other Derm: None - Past Surgical History Past Surgical History: Yes Ortho: Hip replacement, Knee replacement Cardiovascular: Angioplasty, Other - Present Medications Home Medications: Ambulatory Orders Medication Instructions Recorded Confirmed Ascorbic Acid [Vitamin C] 1,000 mg PO DAILY 05/02/22 11/24/23 DULoxetine [Cymbalta] 30 mg ORAL DAILY 05/02/22 11/24/23 Multivitamin 1 tab ORAL DAILY 05/02/22 03/14/24 Tetrahydrozoline HCl [Eye Drops] 15 ml OP QID 05/02/22 03/14/24 Zaleplon 5 mg PO HS 05/02/22 03/14/24 rOPINIRole [Requip] 1 - 2 mg PO BID 05/02/22 03/14/24 Aspirin [Aspirin EC] 81 mg PO UD 10/14/22 03/14/24 Atorvastatin Calcium [Lipitor] 80 mg PO DAILY 10/14/22 03/14/24 Clopidogrel [Plavix] 75 mg PO DAILY 10/14/22 03/14/24 Spironolactone [Aldactone] 25 mg PO BID 10/14/22 03/14/24 Cholecalciferol (Vitamin D3) 125 mcg PO DAILY 03/14/24 03/14/24 [D3-5000] Empagliflozin [Jardiance] 25 mg PO DAILY 03/14/24 03/14/24 Fluticasone/Umeclidin/Vilanter 1 inh IH DAILY 03/14/24 03/14/24 [Trelegy Ellipta 100-62.5-25] Gabapentin [Neurontin] 200 mg PO HS 03/14/24 03/14/24 Insulin Aspart Prot/Insuln Asp 35 - 45 units SUBQ BID 03/14/24 03/14/24 [Novolog Mix 70-30 Flexpen] Nitroglycerin [Nitrostat] 0.4 mg SL [id number] 03/14/24 03/14/24 Pantoprazole [Protonix] 40 mg PO DAILY 03/14/24 03/14/24 Semaglutide [Ozempic] 1 mg SQ Q7D 03/14/24 03/14/24 carvediloL [Coreg] 3.125 mg PO BID #60 tablet 03/17/24 cephALEXin [Keflex] 500 mg PO BID #14 cap 03/17/24 - Allergies Allergies/Adverse Reactions: Allergies Allergy/AdvReac Type Severity Reaction Status Date / Time No Known Drug Allergies Allergy Verified 06/05/24 18:43 - Social History Does the pt smoke?: No Smoking Status: Never smoker Does the pt drink ETOH?: No Does the pt have substance abuse?: No - Immunizations Immunizations are current?: Yes - POLST Patient has POLST: No PD ED PE NORMAL - Vitals Vital signs reviewed: Yes - General General: Alert and oriented X 3, No acute distress, Well developed/nourished - HEENT HEENT: Atraumatic, EOMI, Moist mucous membranes - Neck Neck: Supple, no meningeal sign, No bony TTP - Cardiac Cardiac: RRR, No murmur - Respiratory Respiratory: No respiratory distress, Clear bilaterally - Abdomen Abdomen: Soft, Non tender, Non distended - Back Back: No spinal TTP - Derm Derm: Normal color, Warm and dry, No rash - Extremities Extremities: No deformity, No edema, Other (Mild tenderness palpation over medial left knee and tenderness palpation over left posterior calf. Mild tenderness palpation over left lateral hip, no pain with compression of pelvis. No pain with passive movement of left hip or knee. Otherwise negative musculoskeletal exam.) - Neuro Neuro: Normal speech, Other (Grossly intact otherwise, alert.) Eye Opening: Spontaneous Motor: Obeys Commands Verbal: Oriented GCS Score: 15 - Psych Psych: Normal mood, Normal affect Results - Vitals Vitals: Vital Signs - 24 hr 06/05/24 06/05/24 18:44 21:27 Temperature 36.7 C Heart Rate 60 64 Respiratory 30 H 18 Rate Blood Pressure 139/55 H 182/60 H O2 Saturation 99 96 Oxygen O2 Source Room air - Rads (name of study) CT head Relevant Findings:: Final report received, See rad report (Negative for acute findings) CT C-spine Relevant Findings:: Final report received, See rad report (Negative for acute findings) CT pelvis Relevant Findings:: Final report received, See rad report (Low quality study secondary to scatter from bilateral hip prostheses.) Pelvis plain film Relevant Findings:: Final report received, See rad report (Right acetabular irregularity, possibly fracture indeterminate age; no left-sided findings. Bilateral hip prostheses.) Tib-fib x-ray series Relevant Findings:: Final report received, See rad report (No acute findings) PD Medical Decision Making - ED course Complexity details: reviewed results, re-evaluated patient, considered differential, d/w patient ED course: The patient was worked up with CT scan of the head and neck, as well as CT of the pelvis and left hip, and x-ray series of the left knee/Tib-fib which turned out to be prosthetic. I did get a tib-fib x-ray series also because the patient seemed to have pain in her calf that was new since the fall this morning. No acute findings were noted on the imaging studies. There was a questionable fracture lucency involving the right acetabulum, But the patient had absolutely no symptoms involving that side whatsoever. I suspected that there was not an acute component to this. The patient was stable for discharge home. The patient was treated with a dose of pain medication prior to discharge. She was able to transfer to the wheelchair from bed. Patient has an appointment with chronic pain specialist tomorrow and strongly advised to keep that appointment, which she has chronic pain and obesity and at her age, these are most likely to remain ongoing issues. Departure - Departure Disposition: Home, Self Care Clinical Impression: Ground-level fall Chronic hip pain Qualifiers: Laterality: left Qualified Code(s): M25.552 - Pain in left hip Chronic low back pain Qualifiers: Back pain laterality: left Sciatica presence: with sciatica Sciatica laterality: sciatica of left side Qualified Code(s): M54.42 - Lumbago with sciatica, left side Left knee pain Qualifiers: Chronicity: acute Qualified Code(s): M25.562 - Pain in left knee Condition: Stable Instructions: ED Mechanical Fall Comments: We have obtained extensive imaging of your head, neck, pelvis, left hip, left knee, and left lower leg, with no acute findings. Your prostheses all look good. Most likely you have sustained bruises and strains. Please follow-up with your primary doctor as needed. You may take ibuprofen and Tylenol at home as needed for any pain. Forms: PCP List Discharge Date/Time: 06/05/24 22:46
--- NOTE | 2024-06-05 20:52 | CT Report ---
PROCEDURE: Head WO INDICATIONS: fall/head inj TECHNIQUE: Noncontrast 4.5 mm thick angled axial sections acquired from the foramen magnum to the vertex. For r adiation dose reduction, the following was used: automated exposure control, adjustment of mA and/or kV according to patient size. COMPARISON: 03/17/2024 FINDINGS: Image quality: Diagnostic CSF spaces: Basal cisterns are patent. Lateral ventricles are symmetric. Volume: Vascular calcifications. Periventricular white matter disease is commonly seen with chronic m icroangiopathy. Volume loss is present. These findings are moderate. Brain: No acute hemorrhage or gross loss of byers-white differentiation Possible exostosis or calcified meningioma adjacent right frontal region again seen. Craniofacial structures: No significant paranasal sinus opacity. IMPRESSION: No acute intracranial abnormality. Reviewed by: Reji Esposito MD on 06/05/2024 8:51 PM PDT Approved by: Reji Esposito MD on 06/05/2024 8:51 PM PDT Station ID: [id number]
--- NOTE | 2024-06-05 20:54 | CT Report ---
PROCEDURE: Cervical Spine WO INDICATIONS: fall/head strike TECHNIQUE: Noncontrast 3 mm thick sections acquired from the skull base to the T4 level. Sagittal and coronal r eformats were then constructed. For radiation dose reduction, the following was used: automated exp osure control, adjustment of mA and/or kV according to patient size. COMPARISON: 03/17/2024 FINDINGS: Image quality: Diagnostic Bones: Moderate degenerative changes. Vertebral body heights are well-maintained. No traumatic sublux ation. Soft tissues: No pathologic prevertebral soft tissue swelling. No evidence of pneumothorax. Vascular calcifications. IMPRESSION: No acute fracture/subluxation. If there is high concern for further derangement, consider MRI evaluat ion. Moderate background spondylosis Reviewed by: Reji Esposito MD on 06/05/2024 8:53 PM PDT Approved by: Reji Esposito MD on 06/05/2024 8:53 PM PDT Station ID: [id number]
--- NOTE | 2024-06-05 20:59 | CT Report ---
PROCEDURE: Pelvis WO INDICATIONS: fall/L hip TECHNIQUE: Noncontrast 3 mm axial sections acquired through the bony pelvis, with coronal and sagittal reformatt ing. For radiation dose reduction, the following was used: automated exposure control, adjustment of mA and/or kV according to patient size. COMPARISON: None. FINDINGS: Image quality: Diagnostic, without limited significantly by metallic artifact Bones: There are bilateral hip arthroplasties. Right pubic ring deformity, nonacute appearing. Lumbos acral degenerative changes. There is a focal nondisplaced lucency at the right acetabulum. Soft tissues: Pessary in place. Bladder is unremarkable. Intrapelvic structures are not well assessed on this study. Fat-containing umbilical hernia. IMPRESSION: Bilateral hip arthroplasties with significant surrounding metallic artifact. Possible nondisplaced mariela cency at the right acetabulum, possibly a fracture, but this is age-indeterminate. See image Right pubic bone deformity appears nonacute. No acute left-sided fracture. Reported injury is in the left hip. Background lumbosacral degenerative changes. Reviewed by: Reji Esposito MD on 06/05/2024 8:58 PM PDT Approved by: Reji Esposito MD on 06/05/2024 8:58 PM PDT Station ID: [id number]
--- NOTE | 2024-06-05 21:29 | XRAY Report ---
PROCEDURE: Tib/Fib LT INDICATIONS: fall/L lower leg pain TECHNIQUE: 2 views of the tibia and fibula were acquired. COMPARISON: None. FINDINGS: Bones: The arthroplasty. No acute displaced fracture of the tibial shaft or fibular shaft. Calcaneal enthesopathy and ankle and midfoot degenerative changes partially seen. Bone fragments is seen adjacent to the medial malleolus and tibiotalar joint, age indeterminate. Soft tissues: No suspicious calcifications. Vascular calcifications are present. IMPRESSION: No acute fracture of the tibial shaft or fibular shaft. Knee arthroplasty is partially seen. Surrounding soft tissue swelling. If there is high concern for occult injury, consider repeat radiography or cross-sectional imaging. Degenerative changes of the ankle and foot. Age-indeterminate bone fragments adjacent to the tibiotal ar joint and medial malleolus partially seen, correlate with location of injury. Reviewed by: Reji Esposito MD on 06/05/2024 9:28 PM PDT Approved by: Reji Esposito MD on 06/05/2024 9:28 PM PDT Station ID: [id number]
--- NOTE | 2024-06-05 21:32 | XRAY Report ---
PROCEDURE: Pelvis 1-2V INDICATIONS: pain, fall TECHNIQUE: 1 view(s) of the pelvis acquired. COMPARISON: Same-day pelvis CT 04/02/2023 FINDINGS: Bones: Possible fracture lucency again seen at the right acetabulum. The superior most right hip art hroplasty acetabular screw is broken, similar to prior. No acute displaced fracture elsewhere. Old deformity of the right inferior pubic ring. Lumbosacral degenerative changes. Soft tissues: Vascular calcifications. Ossification adjacent to right greater trochanter. Vascular s tents. IMPRESSION: Fracture age indeterminate lucency at the right acetabulum, more conspicuous than 2022. Broken screw at the right superior acetabulum is similar to prior. Degenerative changes. Increased ossification is adjacent to the right greater trochanter. Old fracture of the right inferior pubic ring. Reviewed by: Reji Esposito MD on 06/05/2024 9:31 PM PDT Approved by: Reji Esposito MD on 06/05/2024 9:31 PM PDT Station ID: [id number]
[2024-06-05 21:37] VITALS: BP 182/60; O2SAT 96
[2024-06-05] MEDS: HYDROcod/ACETAM 5/325 MG TABLET PO STA (22:39)
== END 2024-06-05 22:46 | disposition home or self-care (01) ==
LOC: ED 18:39
DX: M25.562 Pain in left knee (principal); M25.552 Pain in left hip; M54.50 Low back pain, unspecified; G89.29 Other chronic pain; W18.30XA Fall on same level, unspecified, initial encounter; I11.0 Hypertensive heart disease with heart failure; I50.9 Heart failure, unspecified; J44.9 Chronic obstructive pulmonary disease, unspecified; I25.2 Old myocardial infarction; E11.42 Type 2 diabetes mellitus with diabetic polyneuropathy; Z79.899 Other long term (current) drug therapy; Z79.82 Long term (current) use of aspirin; Z79.02 Long term (current) use of antithrombotics/antiplatelets; Z79.4 Long term (current) use of insulin; Z79.84 Long term (current) use of oral hypoglycemic drugs
CPT/HCPCS: 70450; 72125; 72170; 72192; 73590; 99284; A9270

== ENCOUNTER 2024-11-15 11:35 | Observation (INO) ==
--- NOTE | 2024-11-15 11:50 | ED Physician Documentation ---
History of Present Illness Stated complaint Stated Complaint: LEG PX Chief complaint Chief Complaint: Ext Problem History obtained from History obtained from: Patient and EMS Additonal information Additional information: This is an 84-year-old woman who has known back problems and has seen a surgeon in [place] for same. Surgery is pending "nicotine test" to ensure that she truly has quit smoking. She tells me she quit in June. She has help at home and uses a walker. Today she had an episode of weakness and fell onto her butt. She did hit her head but she says it was very light and she does not have a headache or loss of consciousness. Her back pain is uncontrolled despite being on pain management. Her shoulders are sore from using the walker. She does not feel like her breathing is any worse than usual. She does have COPD. Meds/Allgy Home Medications Ambulatory Orders Medication Instructions Recorded Confirmed albuterol sulfate 2.5 mg/3 mL 2.5 mg inhalation Q4H PRN 07/21/24 09/12/24 (0.083 %) solution for nebulization aspirin 81 mg tablet,delayed 81 mg PO QDAY 07/21/24 09/12/24 release atorvastatin 80 mg tablet (Lipitor) 80 mg PO DAILY 07/21/24 09/12/24 blood sugar diagnostic (Accu-Chek 07/21/24 08/10/24 Guide test strips) empagliflozin 25 mg tablet 25 mg PO QDAY 07/21/24 09/12/24 (Jardiance) estradiol 0.01% (0.1 mg/gram) 1 g vaginal .every 3 days 07/21/24 09/12/24 vaginal cream (Estrace) gabapentin 100 mg capsule 100 mg PO HS 07/21/24 09/12/24 nitroglycerin 0.4 mg sublingual 0.4 mg sublingual [id number] 07/21/24 09/12/24 tablet pen needle, diabetic 32 gauge x 07/21/24 08/10/24" (BD Ultra-Fine Regina Pen Needle) semaglutide 1 mg/dose (4 mg/3 mL) 1 mg subcut QWEEK 07/21/24 09/12/24 subcutaneous pen injector (Ozempic) torsemide 20 mg tablet (Soaanz) 20 mg PO QDAY 07/21/24 09/12/24 walker 07/21/24 08/10/24 zaleplon 5 mg capsule 5 mg PO HS 07/21/24 08/10/24 carvedilol 3.125 mg tablet 3.125 mg PO BID #180 tabs 09/12/24 09/12/24 hydrocodone 5 mg-acetaminophen 325 1 tab PO TID PRN 09/12/24 09/12/24 mg tablet ropinirole 1 mg tablet 1 - 2 mg (1 - 2 x 1 mg) PO BID 10/05/24 10/05/24 #270 tabs fluticasone fur. 100 mcg-umeclid 1 inh inhalation DAILY #28 ea 10/10/24 62.5 mcg-vilant 25 mcg inhalat.powder (Trelegy Ellipta) insulin NPH-regular 70-30 U-100 See Rx Instructions subcut BID 10/24/24 insulin 100 unit/mL subcutaneous pen (Novolin 70-30 FlexPen U-100 Insulin) Allergies Allergies Allergy/AdvReac Type Severity Reaction Status Date / Time lisinopril AdvReac Intermediate Unknown Verified 11/15/24 11:43 [facility] Active Problems All Active Problems (Updated 11/15/24 @ 13:01 by Oliverio Capps MD) Bradycardia (Acute) Obstructive sleep apnea (Acute) Peripheral vascular disease (Acute) Chronic kidney disease, stage 3b (Acute) Atherosclerotic heart disease of [place] coronary artery without angina pectoris (Acute) Hip pain, bilateral (Acute) Tobacco dependence (Acute) COPD (chronic obstructive pulmonary disease) (Chronic) Uterine prolapse (Acute) Urinary, incontinence, stress female (Acute) History of knee replacement (Acute) Restless leg syndrome (Acute) Repeated falls (Acute) Presence of pessary (Acute) Presence of cardiac and vascular implant and graft, unspecified (Acute) Muscle weakness (Acute) Mechanical loosening of internal right hip prosthetic joint, subsequent encounter (Acute) Insomnia (Acute) Knee pain, bilateral (Acute) Hyperlipidemia, mixed (Acute) History of hip replacement (Acute) Coronary artery disease (Acute) GERD (gastroesophageal reflux disease) (Acute) Essential hypertension, benign (Acute) Edentulous (Acute) Type 2 diabetes mellitus with peripheral neuropathy (Acute) Type 2 diabetes mellitus (Acute) Depression with anxiety (Acute) Congestive heart failure (CHF) (Acute) Osteopenia of left femoral neck (Chronic) Iron deficiency anemia (Chronic) Medical History Medical History (Updated 11/15/24 @ 13:01 by Oliverio Capps MD) History of CVA (cerebrovascular accident) Lacunar History of myocardial infarction 2021 History of TIA (transient ischemic attack) Surgical History Surgical History S/P total knee arthroplasty right knee with 2 revisions S/P total hip arthroplasty bilateral S/P cholecystectomy S/P cataract extraction S/P carpal tunnel release Family History Family History (Updated 07/21/24 @ 09:46 by Yesica Fink) Mother Heart attack Maternal grandmother Diabetes Brother COPD (chronic obstructive pulmonary disease) Father Heart disease Social History Social History Smoking Status: Former smoker If you are a former smoker, when did you quit? (Date/Year): Gave up smoking 11/04/2021 Number of Years Smoked: 50 How many cigarettes a day do you smoke? 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 Normal sensation throughout the lower extremities. Some weakness in the right leg limited by muscle cramp on initial evaluation. Neurology GCS 15 Results Vitals Vitals: Vital Signs - 24 hr 11/15/24 11:40 11/15/24 11:53 Temperature 36.7 C Pulse Rate 51 L 43 L Respiratory Rate 18 14 Blood Pressure 120/59 L 120/59 L O2 Saturation 96 94 O2 Source Room air Room air Pain Intensity 6 10 Oxygen O2 Source Room air EKG (time done) 1200: EKG releavant findings:: EKG personally interpreted by author of this note. Relevant findings are: Junctional rhythm with right bundle branch and left anterior fascicular block. Possible inferior infarct, age-indeterminate. Labs Labs: Laboratory Tests 11/15/24 12:11 WBC 6.5 RBC 4.07 L Hgb 12.1 Hct 37.4 MCV 91.9 MCH 29.7 MCHC 32.4 RDW 16.2 H Plt Count 130 MPV 10.0 Neut # (Auto) 5.0 Lymph # (Auto) 0.9 L [place] # (Auto) 0.4 Eos # (Auto) 0.2 Baso # (Auto) 0.0 Absolute Nucleated RBC 0.00 Nucleated RBC % 0.0 Sodium 140 Potassium 4.1 Chloride 110 Carbon Dioxide 24 Anion Gap 6.0 BUN 38 H Creatinine 1.5 H Estimated GFR (MDRD) 33 L Glucose 112 H Calcium 9.3 Total Bilirubin 0.7 AST 13 ALT 11 Alkaline Phosphatase 91 Total Protein 6.6 Albumin 3.7 Globulin 2.9 Albumin/Globulin Ratio 1.3 Lipase 56 PD Medical Decision Making ED course ED course: 84-year-old woman presents with generalized weakness. She is having an ongoing back issue but the weakness caused her to fall today without obvious injury. She is bradycardic here so would be worried that that might be exacerbating her symptomatology. Workup demonstrates stable chronic kidney disease on CMP which was otherwise unremarkable. Her CT BC was normal. On her EKG she is in a junctional rhythm with a rate of mid 40s. She is still feeling weak after IV fluids. I suspect the bradycardia may be causative. She is on Coreg so spoke with Dr. Morgan for observation for bradycardia and Coreg washout at 1 PM.. Discharge Plan Discharge Patient Disposition: ED Place in Observation Condition: Stable Clinical Impression: Muscle weakness, Bradycardia Prescriptions: No Action Trelegy Ellipta 100-62.5-25 mcg blister with device 1 inh inhalation DAILY Qty: 28 3RF Rx Instructions: inhale 1 puff as directed once a day zaleplon 5 mg capsule 5 mg PO HS Rx Instructions: Takd 1 capsule by mouth at bedtime aspirin 81 mg tablet,delayed release (DR/EC) 81 mg PO QDAY Rx Instructions: Take 1 tablet by mouth once a day atorvastatin [Lipitor] 80 mg tablet 80 mg PO DAILY Rx Instructions: Take 1 tablet by mouth every day for cholesterol gabapentin 100 mg capsule 100 mg PO HS Rx Instructions: Take 1-3 capsule by mouth every night. Increase to 2 capsules after first 2 weeks. nitroglycerin 0.4 mg tablet, sublingual 0.4 mg sublingual [id number] Rx Instructions: Place one tablet under the tongue every 5 minutes as needed for chest pain. Max 3 doses per 15 minutes. If no relief, call 911. hydrocodone-acetaminophen 5-325 mg tablet 1 tab PO TID PRN carvedilol 3.125 mg tablet 3.125 mg PO BID Qty: 180 4RF Rx Instructions: Take one tablet by mouth twice a day ropinirole 1 mg tablet 1 - 2 mg PO BID Qty: 270 3RF Rx Instructions: Take 1 tablet by mouth every morning and 2 tablets by mouth every evening. (DME) Accu-Chek Guide test strips Strip See Rx Instructions .Route Rx Instructions: Use 1 strip twice daily albuterol sulfate 2.5 mg /3 mL (0.083 %) solution for nebulization 2.5 mg inhalation Q4H PRN Rx Instructions: Inhale 3mL using nebulizer every four hours as needed for wheezing. (DME) pen needle, diabetic [BD Ultra-Fine Regina Pen Needle] 32 gauge x 5/32" needle See Rx Instructions .Route Rx Instructions: Use one needle daily SQ for insulin injection estradiol [Estrace] 0.01 % (0.1 mg/gram) cream 1 g vaginal .every 3 days Rx Instructions: 1 gram into vagina every three days Jardiance 25 mg tablet 25 mg PO QDAY Rx Instructions: Take one tablet by mouth every day. Ozempic 1 mg/dose (4 mg/3 mL) pen injector 1 mg subcut QWEEK Rx Instructions: Inject 1 mg subcutaneously once a week torsemide [Soaanz] 20 mg tablet 20 mg PO QDAY Rx Instructions: 1/2 tablet every morning (DME) diamante Gutierrez See Rx Instructions .Route Rx Instructions: As directed Novolin 70-30 FlexPen U-100 100 unit/mL (70-30) insulin pen See Rx Instructions subcut BID Rx Instructions: subcutaneously twice a day; Inject 30 units subcutaneously in the morning and 25 units in the evening with an additional 5 units once a week. Print Language: Albanian Stand Alone Forms: PCP List
[2024-11-15] MEDS: SODIUM CHLORIDE 0.9% 1,000 ML IV STA (12:02)
[2024-11-15] MEDS: HYDROmorphone 1 MG/ML SYRINGE IVP STA (12:02)
[2024-11-15 12:18] LABS: BASOPHILS % (AUTO) 0.5 %; EOSINOPHILS # (AUTO) 0.2 10^3/uL (0.0-0.7); EOSINOPHILS % (AUTO) 2.8 %; HCT - HEMATOCRIT 37.4 % (37.0-47.0); HGB - HEMOGLOBIN 12.1 g/dL (12.0-16.0); LYMPHOCYTES # (AUTO) 0.9 10^3/uL (1.5-3.5); LYMPHOCYTES % (AUTO) 14.1 %; MEAN CORPUSCULAR HEMOGLOBIN 29.7 pg (27.0-31.0); MEAN CORPUSCULAR HGB CONC 32.4 g/dL (32.0-36.0); MEAN CORPUSCULAR VOLUME 91.9 fL (81.0-99.0); MONOCYTES # (AUTO) 0.4 10^3/uL (0.0-1.0); MONOCYTES % (AUTO) 5.4 %; NEUTROPHILS % (AUTO) 76.9 %; PLT - PLATELET COUNT 130 10^3/uL (130-450); RED BLOOD COUNT 4.07 10^6/uL (4.20-5.40); RED CELL DISTRIBUTION WIDTH 16.2 % (12.0-15.0); WHITE BLOOD COUNT 6.5 x10^3/uL (4.8-10.8)
[2024-11-15 12:44] LABS: ALBUMIN 3.7 g/dL (3.2-5.5); ALBUMIN/GLOBULIN RATIO 1.3 (1.0-2.2); BILIRUBIN,TOTAL 0.7 mg/dL (0.2-1.0); CALCIUM 9.3 mg/dL (8.5-10.3); CREATININE 1.5 mg/dL (0.6-1.3); POTASSIUM 4.1 mmol/L (3.5-4.5); TOTAL PROTEIN 6.6 g/dL (6.4-8.9)
--- NOTE | 2024-11-15 14:12 | HISTORY & PHYSICAL EXAMINATION ---
Chief Complaint Chief Complaint Chief Complaint: fall, weakness, bradycardia History of Present Illness Admitted From Admitted From:: Emergency Department History Obtained From History obtained from: Self, Son (Lacho), [id number] (Shelia) History of Present Illness HPI Comment/Other: Dena is a 84-year-old female with complex medical history who presents today after a fall. She reports about 1030 this morning she was walking to her bedside commode when her legs suddenly "went out from under me". She fell to the ground and hit her head on the commode. She was unable to stand on her own, EMS helped her up and brought her to the ED. She denies chest pain, dizziness, lightheadedness, loss of consciousness, recent illness. She reports at least 4 falls since January 2024, when she fell and injured her back and hips. She does not recall the reason for this fall. Her DIL states she fell in January 2024 and "sheared a pin off" from her right hip. Since then, she has had consistent and chronic pain of the lower back, both hips, and both legs. She states her most recent fall was about 10 days ago, denies head injury at that time, it was the same cause as today's fall where her legs "just went out". She and her DIL report bradycardia (often in low 40s) for the past 1 year, roughly since her fall in January 2024. They state this has been discussed with her PCP but are unsure of any workup or cause for the bradycardia. She has not seen a Combat Control Manager for at least 2 years. She denies ever being symptomatic with her bradycardia - no confusion, dizziness, change in vision, nausea or vomiting, chest pain, palpitations. She states she would not even know it was happening if she was not told about it. She is working with [employer] for her COPD and reports using PulseOx daily to monitor heart rate and oxygen, she is unsure of typical numbers but has been steadily in the 40s and 50s for several months. She had an WI in March 2022 and subsequently had 3 stents placed. Her mobility declined after that heart attack and has continued to worsened. She moved in with her son and [id number] so they can help her. Now she is able to walk a few steps at a time using a cane or walker, but is unsteady on her feet. She requires a bedside commode and assistance with many ADLs. Her diabetes mellitus appears controlled, most recent A1c was 6.4% about 3 months ago. Blood glucose 124 upon entry to ED. She has no concerns about low or high glucose levels. She is unsure of her normal values, but reports it is almost always "within the safe range." She has a continuous glucose monitor in place with electronic alerts. Denies symptoms of hyperglycemia or hypoglycemia including confusion, sweating, shakiness, tachycardia, irritability, vision changes. Her medical history includes obstructive sleep apnea, peripheral vascular disease, stage 3b chronic kidey disease, COPD, coronary artery disease, GERD, essential hypertension, type 2 diabetes mellitus with peripheral neuropathy, and congestive heart failure. She denies history of stroke, however EMR lists prior lacunar CVA and TIA. I will clarify with patient once she and her family are moved to inpatient. Her [id number] helps to manage her health conditions and medications. She has a daily medication organizer that they use to prepare her daily medications. They do not believe there have been any recent mixed or extra medication doses. Her medical team includes PCP Dr. Jojo Nelson in [place], Supervisor Brine Dr. Lee at [facility] (COPD), Dr. Hebert Diaz at [facility], and Dr. Mon at [facility] Heme/Onc (anemia). She lives with her son Lacho, his Shelia, their adult daughter, and their 5 cats. Her hobbies include arts and crafts, including asiya. Meds/Allgy Home Medications Ambulatory Orders Medication Instructions Recorded Confirmed albuterol sulfate 2.5 mg/3 mL 2.5 mg inhalation Q4H PRN 07/21/24 11/15/24 (0.083 %) solution for nebulization shortness of breath or wheezing aspirin 81 mg tablet,delayed 81 mg PO DAILY 07/21/24 11/15/24 release atorvastatin 80 mg tablet (Lipitor) 80 mg PO DAILY 07/21/24 11/15/24 blood sugar diagnostic (Accu-Chek 07/21/24 08/10/24 Guide test strips) empagliflozin 25 mg tablet 25 mg PO QDAY 07/21/24 11/15/24 (Jardiance) gabapentin 100 mg capsule 100 mg PO TID 07/21/24 11/15/24 nitroglycerin 0.4 mg sublingual 0.4 mg sublingual [id number] 07/21/24 11/15/24 tablet pen needle, diabetic 32 gauge x 07/21/24 08/10/2432" (BD Ultra-Fine Regina Pen Needle) semaglutide 1 mg/dose (4 mg/3 mL) 1 mg subcut QWEEK 07/21/24 11/15/24 subcutaneous pen injector (Ozempic) torsemide 20 mg tablet (Soaanz) 10 mg PO DAILY 07/21/24 11/15/24 walker 07/21/24 08/10/24 zaleplon 5 mg capsule 5 mg PO HS 07/21/24 11/15/24 carvedilol 3.125 mg tablet 3.125 mg PO BID #180 tabs 09/12/24 11/15/24 hydrocodone 5 mg-acetaminophen 325 1 tab PO TID PRN Radiculopathy 09/12/24 11/15/24 mg tablet fluticasone fur. 100 mcg-umeclid 1 inh inhalation DAILY #28 ea 10/10/24 11/15/24 62.5 mcg-vilant 25 mcg inhalat.powder (Trelegy Ellipta) insulin NPH-regular 70-30 U-100 30 unit subcut BID 10/24/24 11/15/24 insulin 100 unit/mL subcutaneous pen (Novolin 70-30 FlexPen U-100 Insulin) calcitriol 0.25 mcg capsule 0.25 mcg PO BID 11/15/24 11/15/24 glipizide 10 mg tablet, extended 10 mg PO BID 11/15/24 11/15/24 release 24 hr meloxicam 7.5 mg tablet 7.5 mg PO DAILY PRN pain 11/15/24 11/15/24 pregabalin 75 mg capsule 75 mg PO BID 11/15/24 11/15/24 ropinirole 1 mg tablet See Rx Instructions .Route .COMPLEX 11/15/24 11/15/24 Allergies Allergies Allergy/AdvReac Type Severity Reaction Status Date / Time lisinopril AdvReac Intermediate Unknown Verified 11/15/24 11:43 PFSH Active Problems All Active Problems (Updated 11/15/24 @ 16:18 by Satish Morgan MD) Bradycardia (Acute) Obstructive sleep apnea (Acute) Peripheral vascular disease (Acute) Chronic kidney disease, stage 3b (Acute) Atherosclerotic heart disease of [place] coronary artery without angina pectoris (Acute) Hip pain, bilateral (Acute) Tobacco dependence (Acute) COPD (chronic obstructive pulmonary disease) (Chronic) Uterine prolapse (Acute) Urinary, incontinence, stress female (Acute) History of knee replacement (Acute) Restless leg syndrome (Acute) Repeated falls (Acute) Presence of pessary (Acute) Presence of cardiac and vascular implant and graft, unspecified (Acute) Muscle weakness (Acute) Mechanical loosening of internal right hip prosthetic joint, subsequent encounter (Acute) Insomnia (Acute) Knee pain, bilateral (Acute) Hyperlipidemia, mixed (Acute) History of hip replacement (Acute) Coronary artery disease (Acute) GERD (gastroesophageal reflux disease) (Acute) Essential hypertension, benign (Acute) Edentulous (Acute) Type 2 diabetes mellitus with peripheral neuropathy (Acute) Type 2 diabetes mellitus (Acute) Depression with anxiety (Acute) Congestive heart failure (CHF) (Acute) Osteopenia of left femoral neck (Chronic) Iron deficiency anemia (Chronic) Medical History Medical History (Updated 11/15/24 @ 16:18 by Satish Morgan MD) History of CVA (cerebrovascular accident) Lacunar History of myocardial infarction 2021 History of TIA (transient ischemic attack) Surgical History Surgical History S/P total knee arthroplasty right knee with 2 revisions S/P total hip arthroplasty bilateral S/P cholecystectomy S/P cataract extraction S/P carpal tunnel release Family History Family History (Updated 07/21/24 @ 09:46 by Yesica Fink) Mother Heart attack Maternal grandmother Diabetes Brother COPD (chronic obstructive pulmonary disease) Father Heart disease Social History Social History (Updated 11/15/24 @ 14:37 by Scarlet Huynh) Smoking Status: Former smoker If you are a former smoker, when did you quit? (Date/Year): qt 06/2024 Number of Years Smoked: 50 How many cigarettes a day do you smoke? 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 Service: No Are you following a diet prescribed by a doctor: No Are you following a special diet: No POLST Patient has POLST: No Review of Systems Status of ROS: 10 or more systems reviewed and unremarkable except as noted in history and below Constitutional Reports: Weakness Cardiovascular Denies: chest pain, palpitations, edema, Syncope or lightheadedness Respiratory Reports: Cough, Sputum production, Wheezing, SOB at rest and SOB with exertion Genitourinary Reports: Urinary incontinence Musculoskeletal Reports: Back pain, Extremity pain and Joint pain Allergic/Immunologic Reports: Wheezing Prior Level of Functionality: Limited mobility, able to walk 5-6 steps then needs to stop to catch her breath or due to weakness. Use walker at home, cane outside. Needs assistance with most ADLs from son and DIL. Exam Exam Dena is laying on hospital bed, appears mildly uncomfortable with pursed-lip breathing while on 2L O2 with nasal cannula. She is able to speak in 3-4 word sentences before needing to catch her breath. Constitutional distress noted (mild), abnormal body habitus (obese) and alert HENMT normocephalic, head/scalp atraumatic and hearing grossly normal bilaterally Eyes PERRL, EOMs intact bilaterally and no scleral icterus Neck/C-Spine visual inspection normal Lymph no lymphadenopathy noted Chest inspection of chest normal Respiratory breath sounds equal bilaterally, abnormal respiratory effort (pursed lip breathing) and no wheezes pursed lip breathing Cardiovascular heart rate abnormal (bradycardic), regular rhythm noted and no JVD Gastrointestinal abdomen normal to inspection, abdomen soft to palpation and nontender to palpation Genitourinary no CVA tenderness Extremities tenderness noted Hypertrophic, long toenails Tender and sensitive legs and feet, she requests no palpation of feet and legs Neurology manager technical training II-XII intact, no movement abnormality noted, no focal motor deficit noted, speech normal and GCS 15 Psychiatry mental status grossly normal, oriented x3, thought process normal and cooperative Skin skin color normal Conclusion/Plan Problem List (1) Bradycardia: Plan: Apparently asymptomatic bradycardia persisting for at least 1 year. She denies ever feeling lightheaded, dizzy, confused, chest pain, palpitations. No known recent illness. Blood pressure has remained low in ED with diastolic BP in 50s, and heart rate remains in 40s. - Stop Carvedilol - Telemetry (2) Generalized weakness: Plan: She has chronic weakness after her WI and subsequent stent placements in 2021. It is unclear how significantly her weakness and instability has worsened, although there does not appear to be a correlation between her weakness and her bradycardia. - PT/OT evaluation (3) Repeated falls: Plan: Chronic issue related to chronic leg weakness and hip and back pain. She is planning on spinal surgery with Dr. Mendoza at [facility]. No changes to be made in inpatient setting. Request PT/OT evaluation to ensure safety and stability. - PT/OT evaluation (4) Type 2 diabetes mellitus with peripheral neuropathy: Plan: Diabetes mellitus appears controlled, most recent A1c was 6.4% about 3 months ago. Blood glucose 124 upon entry to ED. She has continuous glucose monitor with electronic alerts. Denies symptoms of hyper or hypoglycemia including confusion, sweating, shakiness, tachycardia, irritability, vision changes. I suspect it is unlikely that blood sugar fluctuations are related to these falls. - Sliding scale insulin - A1c lab (5) Congestive heart failure (CHF): Plan: No acute exacerbation. No JVD, chest congestion, or edema. - Continue home medications Qualifiers: Heart failure chronicity: unspecified Heart failure type: unspecified Qualified Code(s): I50.9 - Heart failure, unspecified Lab Results Lab results reviewed: Yes 11/15/24 12:11 11/15/24 12:11 Diagnostic Imaging Results Diagnostic Imaging Results Comments: Head CT: 1. No acute intracranial process. 2. Moderate atrophy and chronic microvascular ischemic changes. EKG Results EKG Interpreted Independently: Yes EKG Comparison: Unchanged from prior EKG (RBBB seen on EKG from 03/17/2024 and 05/02/2022) EKG Findings: Junctional rhythm, RBBB, LAFB. Bradycardic at rate 46 Core Measures Anticipated LOS I expect patient to be DC'd or transferred within 96 hours.: Yes DVT/VTE - Prophylaxis VTE/DVT Device ordered at admit?: No Not Ordered - Medical Reason: Not tolerated VTE/DVT Prophylaxis med ordered at admit?: Yes
--- NOTE | 2024-11-15 14:51 | CT Report ---
PROCEDURE: CT Head WO INDICATIONS: head trauma, fall today TECHNIQUE: Noncontrast 4.5 mm thick angled axial sections acquired from the foramen magnum to the vertex. For r adiation dose reduction, the following was used: automated exposure control, adjustment of mA and/or kV according to patient size. COMPARISON: CT head 06/05/2024 FINDINGS: Image quality: Excellent. The ventricular system and cortical sulci demonstrate atrophy, consistent for patient's stated age. There are areas of hypodensity in the periventricular and subcortical white matter. There is no acut e intra or extra-axial fluid collection. No acute hemorrhage, mass lesion or midline shift. Brainst em is unremarkable. Globes are symmetrical. Sinuses are aerated. Osseous structures are intact. IMPRESSION: 1. No acute intracranial process. 2. Moderate atrophy and chronic microvascular ischemic changes. Reviewed by: Asiya Gustafson MD on 11/15/2024 2:50 PM PST Approved by: Asiya Gustafson MD on 11/15/2024 2:50 PM PST Station ID: [id number]
[2024-11-15] MEDS ORDERED: SODIUM CHLORIDE FLUSH 0.9% 10 ML SYRINGE IVP PRN (16:02)
--- NOTE | 2024-11-15 16:11 | PHARMACY PROGRESS NOTE ---
Best Possible Medication History Admit Date and Time: 11/15/24 [id number] Home Medications Medication Instructions Recorded Confirmed Type albuterol sulfate 2.5 mg/3 mL 2.5 mg inhalation Q4H PRN 07/21/24 11/15/24 History (0.083 %) solution for nebulization shortness of breath or wheezing aspirin 81 mg tablet,delayed 81 mg PO DAILY 07/21/24 11/15/24 History release atorvastatin 80 mg tablet (Lipitor) 80 mg PO DAILY 07/21/24 11/15/24 History blood sugar diagnostic (Accu-Chek 07/21/24 08/10/24 History Guide test strips) empagliflozin 25 mg tablet 25 mg PO QDAY 07/21/24 11/15/24 History (Jardiance) gabapentin 100 mg capsule 100 mg PO TID 07/21/24 11/15/24 History nitroglycerin 0.4 mg sublingual 0.4 mg sublingual [id number] 07/21/24 11/15/24 History tablet pen needle, diabetic 32 gauge x 07/21/24 08/10/24 History 32" (BD Ultra-Fine Regina Pen Needle) semaglutide 1 mg/dose (4 mg/3 mL) 1 mg subcut QWEEK 07/21/24 11/15/24 History subcutaneous pen injector (Ozempic) torsemide 20 mg tablet (Soaanz) 10 mg PO DAILY 07/21/24 11/15/24 History walker 07/21/24 08/10/24 History zaleplon 5 mg capsule 5 mg PO HS 07/21/24 11/15/24 History carvedilol 3.125 mg tablet 3.125 mg PO BID #180 tabs 09/12/24 11/15/24 Rx hydrocodone 5 mg-acetaminophen 325 1 tab PO TID PRN Radiculopathy 09/12/24 11/15/24 History mg tablet fluticasone fur. 100 mcg-umeclid 1 inh inhalation DAILY #28 ea 10/10/24 11/15/24 Rx 62.5 mcg-vilant 25 mcg inhalat.powder (Trelegy Ellipta) insulin NPH-regular 70-30 U-100 30 unit subcut BID 10/24/24 11/15/24 History insulin 100 unit/mL subcutaneous pen (Novolin 70-30 FlexPen U-100 Insulin) calcitriol 0.25 mcg capsule 0.25 mcg PO BID 11/15/24 11/15/24 History glipizide 10 mg tablet, extended 10 mg PO BID 11/15/24 11/15/24 History release 24 hr meloxicam 7.5 mg tablet 7.5 mg PO DAILY PRN pain 11/15/24 11/15/24 History pregabalin 75 mg capsule 75 mg PO BID 11/15/24 11/15/24 History ropinirole 1 mg tablet See Rx Instructions .Route .COMPLEX 11/15/24 11/15/24 History Processed by: Pharmacy Medications reviewed in ED?: Yes Medication History completed: Yes Patient Interview: Completed Secondary Source(s): Written medication list and Insurance records [facility] Statement: As the person ultimately responsible for medication therapy, providers are able to order a medication from an existing home medication list in [facility] via the "Reconcile Routine" prior to Confirmation of that medication by therapeutic support staff. Such practice is discouraged except when the physician, in their clinical judgment, deems that a medical need exists for a medication without regard to previous use.
[2024-11-15] MEDS: SODIUM CHLORIDE FLUSH 0.9% 10 ML SYRINGE IVP SCH (17:09)
[2024-11-15] MEDS: INSULIN LISPRO 300 UNIT/3 ML PEN SUBQ SCH (17:16)
[2024-11-15] MEDS: TORSEMIDE 20 MG TABLET PO SCH (17:35)
[2024-11-15] MEDS: ASPIRIN EC 81 MG TABLET PO SCH (17:36)
[2024-11-15] MEDS: FORMOTEROL FUMARATE NEB 20 MCG/2 ML INH SCH (19:46)
[2024-11-15] MEDS: IPRATROPIUM 0.2 MG/ML NEB INH SCH (19:46)
[2024-11-15] MEDS: BUDESONIDE 0.5 MG/2 ML NEB INH SCH (19:46)
[2024-11-15] MEDS: rOPINIRole 1 MG TABLET PO SCH (20:14)
[2024-11-15 20:34] LABS: BILIRUBIN,URINE NEGATIVE (NEGATIVE); GLUCOSE, URINE (UA) 500 mg/dL (NEGATIVE); KETONES,URINE (UA) NEGATIVE (NEGATIVE); LEUKOCYTE ESTERASE, URINE MODERATE (NEGATIVE); NITRITE,URINE NEGATIVE (NEGATIVE); OCCULT BLOOD,URINE NEGATIVE (NEGATIVE); PROTEIN,URINE NEGATIVE (NEGATIVE); UROBILINOGEN,URINE 0.2 (NORMAL) E.U./dL (NORMAL)
[2024-11-15 20:48] LABS: BACTERIA,URINE Many /HPF (None Seen); CLARITY,URINE CLEAR (CLEAR); RBC,URINE 0-5 /HPF (0-5); SQUAMOUS EPITHELIAL CELL,UR FEW Squamous (<= Few)
[2024-11-15] MEDS: PREGABALIN 25 MG CAPSULE PO SCH (21:37)
[2024-11-15] MEDS: GABAPENTIN 100 MG CAPSULE PO SCH (21:37)
[2024-11-16] MEDS: ATORVASTATIN 40 MG TABLET PO SCH (08:46)
[2024-11-16] MEDS: JARDIANCE 25 MG PO SCH (08:47)
[2024-11-16] MEDS: rOPINIRole 1 MG TABLET PO SCH (08:47)
[2024-11-16] MEDS ORDERED: NON FORMULARY MED (Fluticasone-Umeclidin-Vilanter [Trelegy Ellipta] 100-62.5-25 mcg bliste INH SCH (09:00)
--- NOTE | 2024-11-16 09:56 | PROVIDER PROGRESS NOTE ---
Subjective Prog Note Date Prog Note Date: 11/16/24 Prog Note Time: 09:54 Subjective Pt reports feeling: Improved Subjective: Dena is awake and is sleepy but responsive. She has been sleeping on and off all night. She denies chest pain, wheezing, abdominal pain, or new/worsening back pain. She feels her breathing is improved after this morning's breathing treatment. Current Medications Current Medications Current Medications: Current Medications Generic Name Dose Route Start Last Admin Trade Name Bradford PRLynn Reason Stop Dose Admin Aspirin 81 mg 11/15/24 16:02 11/16/24 08:47 Aspirin Ec 81 Mg Tablet PO 81 mg DAILY CAROLE Administration Atorvastatin Calcium 80 mg 11/16/24 09:00 11/16/24 08:46 Atorvastatin 40 Mg Tablet PO 80 mg DAILY CAROLE Administration Budesonide 0.5 mg 11/15/24 19:00 11/16/24 07:51 Budesonide 0.5 Mg/2 Ml Neb INH 0.5 mg RTBID CAROLE Administration Formoterol Fumarate 20 mcg 11/15/24 19:00 11/16/24 07:52 Formoterol Fumarate Neb 20 Mcg/2 Ml INH 20 mcg RTBID CAROLE Administration Gabapentin 100 mg 11/15/24 22:00 11/16/24 06:13 Gabapentin 100 Mg Capsule PO 100 mg TID CAROLE Administration Insulin Human Lispro 1 - 5 unit 11/15/24 17:00 11/16/24 08:44 Insulin Lispro 300 Unit/3 Ml Pen SUBQ 2 unit 0800,1200,1700,2100 CAROEL Administration Protocol Ipratropium [place] 0.5 mg 11/15/24 19:00 11/16/24 07:51 Ipratropium 0.2 Mg/Ml Neb INH 0.5 mg [id number] CAROLE Administration Patient Own Med ( 1 each 11/16/24 09:00 11/16/24 08:47 Jardiance 25mg) PO Not Given DAILY CAROLE Pregabalin 75 mg 11/15/24 21:00 11/16/24 08:45 Pregabalin 25 Mg Capsule PO 75 mg BID CAROLE Administration Ropinirole HCl 1 mg 11/16/24 09:00 11/16/24 08:47 Ropinirole 1 Mg Tablet PO 1 mg DAILY CAROLE Administration Ropinirole HCl 2 mg 11/15/24 21:00 02/25/25 20:14 Ropinirole 1 Mg Tablet PO 2 mg QPM CAROLE Administration Sodium Chloride 10 ml 11/15/24 16:02 Sodium Chloride Flush 0.9% 10 Ml Syringe IVP PRN PRN NEEDED PER PROVIDER ORDERS Sodium Chloride 10 ml 11/15/24 17:00 11/16/24 08:48 Sodium Chloride Flush 0.9% 10 Ml Syringe IVP 10 ml 0100,0900,1700 CAROLE Administration Torsemide 10 mg 11/15/24 16:02 11/16/24 08:45 Torsemide 20 Mg Tablet PO 10 mg DAILY CAROLE Administration Zolpidem Tartrate 5 mg 11/15/24 16:41 Zolpidem 5 Mg Tablet PO QPM PRN Insomnia Objective Vital Signs/Intake & Output Reviewed Vital Signs: Yes Vital Signs: Vital Signs x48h Temp Pulse Pulse Resp BP Pulse Ox O2 Flow Rate 11/16/24 09:00 36.7 C 80 20 161/72 H 92 11/16/24 07:54 1 11/16/24 07:54 80 22 11/16/24 05:00 36.8 C 75 20 143/66 H 92 1 Intake & Output: Intake & Output 11/13/24 11/14/24 11/15/24 11/16/24 23:59 23:59 23:59 23:59 Intake Total 1540 / 1540 120 / 120 Output Total 100 / 100 1600 / 1600 Balance 1440 / 1440 -1480 / -1480 Weight (kg) 99 kg Objective General Appearance: positive No acute distress and Alert Eyes Bilateral: positive Normal inspection ENT: positive No signs of dehydration Neck: positive Nml inspection and No JVD Respiratory: positive Chest non-tender and Breath sounds nml; negative No respiratory distress (increased work of breathing, normal per patient) or Wheezes Cardiovascular: positive Regular rate & rhythm Abdomen: positive Non-tender Back: positive Nml inspection Skin: positive Color nml Extremities: positive Non-tender Neurologic/Psychiatric: positive Oriented x3, CN's nml (2-12), Motor nml, Sensation nml and Mood/affect nml Lab Results 11/15/24 12:11 11/15/24 12:11 Other Labs: Lab Results x24hrs 11/16/24 11/15/24 11/15/24 Range/Units 07:46 20:24 20:14 WBC (4.8-10.8) x10^3/uL RBC (4.20-5.40) 10^6/uL Hgb (12.0-16.0) g/dL Hct (37.0-47.0) % MCV (81.0-99.0) fL MCH (27.0-31.0) pg MCHC (32.0-36.0) g/dL RDW (12.0-15.0) % Plt Count (130-450) 10^3/uL MPV (7.9-10.8) fL Neut # (Auto) (1.5-6.6) 10^3/uL Lymph # (Auto) (1.5-3.5) 10^3/uL Bland # (Auto) (0.0-1.0) 10^3/uL Eos # (Auto) (0.0-0.7) 10^3/uL Baso # (Auto) (0.0-0.1) 10^3/uL Absolute Nucleated RBC x10^3/uL Nucleated RBC % /100WBC Sodium (135-145) mmol/L Potassium (3.5-4.5) mmol/L Chloride (101-111) mmol/L Carbon Dioxide (21-32) mmol/L Anion Gap (6-13) BUN (6-20) mg/dL Creatinine (0.6-1.3) mg/dL Estimated GFR (MDRD) (>89) Glucose (74-104) mg/dL POC Whole Bld Glucose 204 129 (70-100) mg/dL Calcium (8.5-10.3) mg/dL Total Bilirubin (0.2-1.0) mg/dL AST (10-42) IU/L ALT (10-60) IU/L Alkaline Phosphatase (42-121) IU/L Total Protein (6.4-8.9) g/dL Albumin (3.2-5.5) g/dL Globulin (2.1-4.2) g/dL Albumin/Globulin Ratio (1.0-2.2) Lipase (11-82) U/L Urine Color YELLOW Urine Clarity CLEAR (CLEAR) Urine pH 6.0 (5.0-7.5) PH Ur Specific [place] 1.020 (1.002-1.030) Urine Protein NEGATIVE (NEGATIVE) mg/dL Urine Glucose (UA) 500 H (NEGATIVE) mg/dL Urine Ketones NEGATIVE (NEGATIVE) mg/dL Urine Occult Blood NEGATIVE (NEGATIVE) Urine Nitrite NEGATIVE (NEGATIVE) Urine Bilirubin NEGATIVE (NEGATIVE) Urine Urobilinogen 0.2 (NORMAL) (NORMAL) E.U./dL Ur Leukocyte Esterase MODERATE H (NEGATIVE) Urine RBC 0-5 (0-5) /HPF Urine WBC 11-25 H (0-5) /HPF Ur Squamous Epith Cells FEW Squamous (<= Few) Urine Bacteria Many H (None Seen) /HPF Ur Microscopic Review INDICATED Urine Culture Comments INDICATED 11/15/24 11/15/24 11/15/24 Range/Units 16:30 13:34 12:11 WBC 6.5 (4.8-10.8) x10^3/uL RBC 4.07 L (4.20-5.40) 10^6/uL Hgb 12.1 (12.0-16.0) g/dL Hct 37.4 (37.0-47.0) % MCV 91.9 (81.0-99.0) fL MCH 29.7 (27.0-31.0) pg MCHC 32.4 (32.0-36.0) g/dL RDW 16.2 H (12.0-15.0) % Plt Count 130 (130-450) 10^3/uL MPV 10.0 (7.9-10.8) fL Neut # (Auto) 5.0 (1.5-6.6) 10^3/uL Lymph # (Auto) 0.9 L (1.5-3.5) 10^3/uL Bland # (Auto) 0.4 (0.0-1.0) 10^3/uL Eos # (Auto) 0.2 (0.0-0.7) 10^3/uL Baso # (Auto) 0.0 (0.0-0.1) 10^3/uL Absolute Nucleated RBC 0.00 x10^3/uL Nucleated RBC % 0.0 /100WBC Sodium 140 (135-145) mmol/L Potassium 4.1 (3.5-4.5) mmol/L Chloride 110 (101-111) mmol/L Carbon Dioxide 24 (21-32) mmol/L Anion Gap 6.0 (6-13) BUN 38 H (6-20) mg/dL Creatinine 1.5 H (0.6-1.3) mg/dL Estimated GFR (MDRD) 33 L (>89) Glucose 112 H (74-104) mg/dL POC Whole Bld Glucose 80 86 (70-100) mg/dL Calcium 9.3 (8.5-10.3) mg/dL Total Bilirubin 0.7 (0.2-1.0) mg/dL AST 13 (10-42) IU/L ALT 11 (10-60) IU/L Alkaline Phosphatase 91 (42-121) IU/L Total Protein 6.6 (6.4-8.9) g/dL Albumin 3.7 (3.2-5.5) g/dL Globulin 2.9 (2.1-4.2) g/dL Albumin/Globulin Ratio 1.3 (1.0-2.2) Lipase 56 (11-82) U/L Urine Color Urine Clarity (CLEAR) Urine pH (5.0-7.5) PH Ur Specific [place] (1.002-1.030) Urine Protein (NEGATIVE) mg/dL Urine Glucose (UA) (NEGATIVE) mg/dL Urine Ketones (NEGATIVE) mg/dL Urine Occult Blood (NEGATIVE) Urine Nitrite (NEGATIVE) Urine Bilirubin (NEGATIVE) Urine Urobilinogen (NORMAL) E.U./dL Ur Leukocyte Esterase (NEGATIVE) Urine RBC (0-5) /HPF Urine WBC (0-5) /HPF Ur Squamous Epith Cells (<= Few) Urine Bacteria (None Seen) /HPF Ur Microscopic Review Urine Culture Comments Assessment/Plan Problem List (1) Bradycardia: Impression: Rate has improved to 80 bpm this morning, improvement likely due to Carvedilol washout. - We will continue to hold Carvedilol. - Continue telemetry (2) UTI (urinary tract infection): Impression: UA collected yesterday positive for glucose, leukocyte esterase, bacteria, and WBCs. This is likely a contributor to current increased weakness and falls. No known allergies to antibiotics. We will start empiric antibiotics per prior UTI cultures showing E. coli and protease, we will adjust medication if needed once culture and sensitivities are back. - Start IV Rocephin, will transition to oral antibiotics on discharge Qualifiers: Urinary tract infection type: site unspecified Hematuria presence: w ithout hematuria Qualified Code(s): N39.0 - Urinary tract infection, site not specified (3) Generalized weakness: Impression: Weakness slightly improved. She does have a UTI which may account for increased weakness recently. - PT/OT evaluation (4) Repeated falls: Impression: Chronic issue related to chronic leg weakness and hip and back pain. She is planning on spinal surgery with Dr. Mendoza [facility]. No changes to be made in inpatient setting. Request PT/OT evaluation to ensure safety and stability. She does have a UTI as seen on UA done yesterday, this may be contributing to increased weakness and falls. - PT/OT evaluation (5) Type 2 diabetes mellitus with peripheral neuropathy: Impression: Diabetes mellitus appears controlled, most recent A1c was 6.4% about 3 months ago. Blood glucose 124 upon entry to ED. She has continuous glucose monitor with electronic alerts. Denies symptoms of hyper or hypoglycemia including confusion, sweating, shakiness, tachycardia, irritability, vision changes. I suspect it is unlikely that blood sugar fluctuations are related to these falls. - Sliding scale insulin (6) Congestive heart failure (CHF): Impression: No acute exacerbation. No JVD, chest congestion, or edema. - Continue home medications Qualifiers: Heart failure chronicity: unspecified Heart failure type: unspecified Qualified Code(s): I50.9 - Heart failure, unspecified
[2024-11-16] MEDS: cefTRIAXone 1 GM VIAL IVP SCH (11:07)
[2024-11-16] MEDS ORDERED: ACETAMINOPHEN 325 MG TABLET PO PRN (12:45)
[2024-11-16] MEDS: IBUPROFEN 400 MG TABLET PO PRN (13:29)
--- NOTE | 2024-11-16 14:32 | Discharge Summary ---
Discharge Summary ALLERGIES Allergies Allergy/AdvReac Type Severity Reaction Status Date / Time lisinopril AdvReac Intermediate Unknown Verified 11/15/24 11:43 MEDICATIONS Ambulatory Orders Medication Instructions Recorded Confirmed albuterol sulfate 2.5 mg/3 mL 2.5 mg inhalation Q4H PRN 07/21/24 11/15/24 (0.083 %) solution for nebulization shortness of breath or wheezing aspirin 81 mg tablet,delayed 81 mg PO DAILY 07/21/24 11/15/24 release atorvastatin 80 mg tablet (Lipitor) 80 mg PO DAILY 07/21/24 11/15/24 blood sugar diagnostic (Accu-Chek 07/21/24 08/10/24 Guide test strips) empagliflozin 25 mg tablet 25 mg PO QDAY 07/21/24 11/15/24 (Jardiance) gabapentin 100 mg capsule 100 mg PO TID 07/21/24 11/15/24 nitroglycerin 0.4 mg sublingual 0.4 mg sublingual [id number] 07/21/24 11/15/24 tablet pen needle, diabetic 32 gauge x 07/21/24 08/10/24 5/32" (BD Ultra-Fine Regina Pen Needle) semaglutide 1 mg/dose (4 mg/3 mL) 1 mg subcut QWEEK 07/21/24 11/15/24 subcutaneous pen injector (Ozempic) torsemide 20 mg tablet (Soaanz) 10 mg PO DAILY 07/21/24 11/15/24 walker 07/21/24 08/10/24 carvedilol 3.125 mg tablet 3.125 mg PO BID #180 tabs 09/12/24 11/15/24 hydrocodone 5 mg-acetaminophen 325 1 tab PO TID PRN Radiculopathy 09/12/24 11/15/24 mg tablet fluticasone fur. 100 mcg-umeclid 1 inh inhalation DAILY #28 ea 10/10/24 11/15/24 62.5 mcg-vilant 25 mcg inhalat.powder (Trelegy Ellipta) insulin NPH-regular 70-30 U-100 30 unit subcut BID 10/24/24 11/15/24 insulin 100 unit/mL subcutaneous pen (Novolin 70-30 FlexPen U-100 Insulin) calcitriol 0.25 mcg capsule 0.25 mcg PO BID 11/15/24 11/15/24 glipizide 10 mg tablet, extended 10 mg PO BID 11/15/24 11/15/24 release 24 hr meloxicam 7.5 mg tablet 7.5 mg PO DAILY PRN pain 11/15/24 11/15/24 pregabalin 75 mg capsule 75 mg PO BID 11/15/24 11/15/24 ropinirole 1 mg tablet See Rx Instructions .Route .COMPLEX 11/15/24 11/15/24 levofloxacin 250 mg tablet 250 mg PO DAILY 2 days #2 tabs 11/16/24 zaleplon 5 mg capsule 5 mg PO HS #30 caps 11/16/24 LABS 11/20/24 04:49 11/20/24 04:49 Discharge Plan Discharge Patient Disposition: 06 Home Health Service Condition: Stable Prescriptions: New levofloxacin 250 mg tablet 250 mg PO DAILY 2 Days Qty: 2 0RF Continued Trelegy Ellipta 100-62.5-25 mcg blister with device 1 inh inhalation DAILY Qty: 28 3RF Rx Instructions: inhale 1 puff as directed once a day zaleplon 5 mg capsule 5 mg PO HS Qty: 30 0RF Rx Instructions: Takd 1 capsule by mouth at bedtime aspirin 81 mg tablet,delayed release (DR/EC) 81 mg PO DAILY Rx Instructions: Take 1 tablet by mouth once a day atorvastatin [Lipitor] 80 mg tablet 80 mg PO DAILY Rx Instructions: Take 1 tablet by mouth every day for cholesterol gabapentin 100 mg capsule 100 mg PO TID Rx Instructions: . nitroglycerin 0.4 mg tablet, sublingual 0.4 mg sublingual [id number] Rx Instructions: Place one tablet under the tongue every 5 minutes as needed for chest pain. Max 3 doses per 15 minutes. If no relief, call 911. glipizide 10 mg tablet extended release 24hr 10 mg PO BID Patient Comments: TAKE 1 TABLET BY MOUTH BEFORE BREAKFAST AND 1 TABLET BEFORE DINNER pregabalin 75 mg capsule 75 mg PO BID Patient Comments: TAKE ONE CAPSULE BY MOUTH TWICE DAILY ropinirole 1 mg tablet See Rx Instructions .ROUTE .COMPLEX Rx Instructions: Take 1 tablet by mouth every morning and 2 tablets by mouth every evening. calcitriol 0.25 mcg capsule 0.25 mcg PO BID meloxicam 7.5 mg tablet 7.5 mg PO DAILY PRN (Reason: pain) Patient Comments: TAKE 1 TABLET BY MOUTH ONCE A DAY WITH FOOD FOR 30 DAYS hydrocodone-acetaminophen 5-325 mg tablet 1 tab PO TID PRN (Reason: Radiculopathy) (DME) Accu-Chek Guide test strips Strip See Rx Instructions .Route Rx Instructions: Use 1 strip twice daily albuterol sulfate 2.5 mg /3 mL (0.083 %) solution for nebulization 2.5 mg inhalation Q4H PRN (Reason: shortness of breath or wheezing) Rx Instructions: Inhale 3mL using nebulizer every four hours as needed for wheezing. (DME) pen needle, diabetic [BD Ultra-Fine Regina Pen Needle] 32 gauge x 5/32" needle See Rx Instructions .Route Rx Instructions: Use one needle daily SQ for insulin injection Jardiance 25 mg tablet 25 mg PO QDAY Rx Instructions: Take one tablet by mouth every day. Ozempic 1 mg/dose (4 mg/3 mL) pen injector 1 mg subcut QWEEK Rx Instructions: Inject 1 mg subcutaneously once a week torsemide [Soaanz] 20 mg tablet 10 mg PO DAILY Rx Instructions: 1/2 tablet every morning (DME) [facility] See Rx Instructions .Route Rx Instructions: As directed Novolin 70-30 FlexPen U-100 100 unit/mL (70-30) insulin pen 30 unit subcut BID Held carvedilol 3.125 mg tablet 3.125 mg PO BID Qty: 180 4RF Hold Instructions: Resume on 11/30/24. please hold until you see your ticket maker. Rx Instructions: Take one tablet by mouth twice a day Diet: Regular Health Concerns: You came in because you were feeling weak. You were found to have a very slow heart rate. We held your carvedilol, or your Coreg, because it can slow down your heart rate. Your heart rate returned to normal. Please continue to hold this medication. I want you to continue holding this until you see a ticket maker. I also want you to see your primary care provider in the next two weeks for a recheck of your blood pressure and heart rate. I am also sending you home with 2 more days of oral antibiotics for urinary tract infection. You received 1 day of IV antibiotics already. You are significantly weak, and I understand that you are in preparation for surgery. Physical therapy did work with you and recommended long-term facility. I spoke with you and your [id number], and this is not an option at this time as it would be self-pay. Please continue to be very careful when you are getting around. Please take your time when getting out of bed. Please minimize your movement. Your [id number] did reassure me that everything is on the same floor. We hope you continue to gain your strength and that your surgeries go well. We are glad you are feeling better, thank you labs to care of you. Print Language: Pakistani Patient Instructions: Falls Prevent Home, Falls Prevent Exercise Stand Alone Forms: PCP List
--- NOTE | 2024-11-16 15:39 | PT Plan of Care ---
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 Admitted with bradycardia and UTI. Pt has extensive medical hx, please see MD note for further details. Notable med hx includes lacunar CVA, KS with stents, RTKA with multiple revisions and BL hip sx , R hip with hardware failure. 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 Upon PT eval today, pt requires modAx1 for supine to sit transfer, maxAx2 for SPT per nsg repost. Pt unable to participate in standing/OOB assessment with PT d /t headache and leg pain. Impaired trunk control and significant increase in pain with all mobility. Given this, pt will benefit from continued PT in acute setting to improve functional mobility and independence. When medically clear, PT rec dc to SNF as pt is below baseline and a high risk for readmission should she dc home. Goals Improve bed mobility to: Contact Guard Improve supine to sit to: Contact Guard Improve sit to stand to: Minimal Assist Improve pivot transfer ability Minimal Assist to: Improve sit to supine to: Minimal Assist Improve gait ability to: Min A Assistive Device Used: Front Wheeled Walker Improve Sitting Balance to: Good Improve Standing Balance to: Fair PT Plan of Care Frequency 1-2x/day Duration Until goals are met Discharge Recommendations Discharge Location [facility] Other shower chair otherwise has all needed DME Transport Needs at [facility] Other unable to sit unsupported
[2024-11-16] MEDS: INSULIN LISPRO 300 UNIT/3 ML PEN SUBQ SCH (21:11)
[2024-11-17 06:22] LABS: CALCIUM 9.8 mg/dL (8.5-10.3); CREATININE 1.5 mg/dL (0.6-1.3); POTASSIUM 3.7 mmol/L (3.5-4.5)
--- NOTE | 2024-11-17 08:37 | PROVIDER PROGRESS NOTE ---
Subjective Prog Note Date Prog Note Date: 11/17/24 Prog Note Time: 08:24 Subjective Pt reports feeling: Improved Subjective: Patient is fully awake and alert, sitting upright in bed. She has some leg pain (chronic) but otherwise feels very well. No chest pain, chest congestion, SOB, abdominal discomfort, suprapubic discomfort, dysuria, changes in urinary frequency or urgency. She has some urinary incontinence at baseline which is unchanged. She reports she has been sleeping very well. She is medically stable for discharge - awaiting placement to SNF. Current Medications Current Medications Current Medications: Current Medications Generic Name Dose Route Start Last Admin Trade Name Freq PRN Reason Stop Dose Admin Acetaminophen 650 mg 11/16/24 12:45 Acetaminophen 325 Mg Tablet PO Q4HR PRN Mild Pain or Fever > 38C Aspirin 81 mg 11/15/24 16:02 11/17/24 08:17 Aspirin Ec 81 Mg Tablet PO 81 mg DAILY CAROLE Administration Atorvastatin Calcium 80 mg 11/16/24 09:00 11/17/24 08:18 Atorvastatin 40 Mg Tablet PO 80 mg DAILY CAROLE Administration Budesonide 0.5 mg 11/15/24 19:00 11/17/24 07:19 Budesonide 0.5 Mg/2 Ml Neb INH 0.5 mg RTBID CAROLE Administration Ceftriaxone Sodium 1 gm 11/16/24 11:00 11/17/24 08:16 Ceftriaxone 1 Gm Vial IVP 1 gm DAILY CAROLE Administration Formoterol Fumarate 20 mcg 11/15/24 19:00 11/17/24 07:19 Formoterol Fumarate Neb 20 Mcg/2 Ml INH 20 mcg RTBID CAROLE Administration Gabapentin 100 mg 11/15/24 22:00 11/17/24 06:29 Gabapentin 100 Mg Capsule PO Not Given TID CAROLE Ibuprofen 400 mg 11/16/24 12:45 11/16/24 13:29 Ibuprofen 400 Mg Tablet PO 400 mg Q6HR PRN Administration Moderate Pain (Level 4-6) Insulin Human Lispro 1 - 9 unit 11/16/24 21:00 11/17/24 08:15 Insulin Lispro 300 Unit/3 Ml Pen SUBQ 3 unit 0800,1200,1700,2100 CAROLE Administration Protocol Ipratropium [place] 0.5 mg 11/15/24 19:00 11/17/24 07:19 Ipratropium 0.2 Mg/Ml Neb INH 0.5 mg RTQ6H CAROLE Administration Patient Own Med ( 1 each 11/16/24 09:00 11/17/24 08:18 Jardiance 25mg) PO Not Given DAILY CAROLE Pregabalin 75 mg 11/15/24 21:00 11/17/24 08:17 Pregabalin 25 Mg Capsule PO 75 mg BID CAROLE Administration Ropinirole HCl 1 mg 11/16/24 09:00 11/17/24 08:18 Ropinirole 1 Mg Tablet PO 1 mg DAILY CAROLE Administration Ropinirole HCl 2 mg 11/15/24 21:00 11/16/24 21:11 Ropinirole 1 Mg Tablet PO 2 mg QPM CAROLE Administration Sodium Chloride 10 ml 11/15/24 16:02 Sodium Chloride Flush 0.9% 10 Ml Syringe IVP PRN PRN NEEDED PER PROVIDER ORDERS Sodium Chloride 10 ml 11/15/24 17:00 11/17/24 08:19 Sodium Chloride Flush 0.9% 10 Ml Syringe IVP 10 ml 0100,0900,1700 CAROLE Administration Sterile Water 10 ml 11/16/24 11:00 11/17/24 08:16 Water For Injection,Sterile 10 Ml Vial MC 10 ml DAILY CAROLE Administration Torsemide 10 mg 11/15/24 16:02 11/17/24 08:18 Torsemide 20 Mg Tablet PO 10 mg DAILY CAROLE Administration Zolpidem Tartrate 5 mg 11/15/24 16:41 Zolpidem 5 Mg Tablet PO QPM PRN Insomnia Objective Vital Signs/Intake & Output Reviewed Vital Signs: Yes Vital Signs: Vital Signs x48h Temp Pulse Pulse Resp BP Pulse Ox 11/17/24 07:22 75 0 L 11/17/24 04:26 36.8 C 65 16 154/59 H 93 11/17/24 02:16 66 16 Intake & Output: Intake & Output 11/14/24 11/15/24 11/16/24 11/17/24 23:59 23:59 23:59 23:59 Intake Total 1540 / 1540 660 / 660 Output Total 100 / 100 3150 / 3150 300 / 300 Balance 1440 / 1440 -2490 / -2490 -300 / -300 Weight (kg) 99 kg Objective General Appearance: positive No acute distress and Alert Eyes Bilateral: positive Normal inspection and PERRL ENT: positive ENT inspection nml Neck: positive Nml inspection and No JVD Respiratory: positive Chest non-tender, No respiratory distress and Breath sounds nml; negative Wheezes Cardiovascular: positive Regular rate & rhythm Abdomen: positive Non-tender, Nml bowel sounds and No distention Back: positive Nml inspection Skin: positive Color nml and Dry Extremities: positive Nml appearance, No pedal edema, Calf tenderness (chronic calf pain, worse with palpation. No acute changes, no edema, erythema, wounds) and Other (bilateral leg pain (chronic) with increased pain at both knees. No edema, erythema, wounds, ); negative Non-tender Neurologic/Psychiatric: positive Oriented x3, CN's nml (2-12), Motor nml, Sensation nml and Mood/affect nml Lab Results 11/15/24 12:11 11/17/24 05:29 Other Labs: Lab Results x24hrs 11/17/24 11/17/24 11/16/24 Range/Units 07:58 05:29 20:35 Sodium 141 (135-145) mmol/L Potassium 3.7 (3.5-4.5) mmol/L Chloride 106 (101-111) mmol/L Carbon Dioxide 24 (21-32) mmol/L Anion Gap 11.0 (6-13) BUN 29 H (6-20) mg/dL Creatinine 1.5 H (0.6-1.3) mg/dL Estimated GFR (MDRD) 33 L (>89) Glucose 181 H (74-104) mg/dL POC Whole Bld Glucose 183 170 (70-100) mg/dL Calcium 9.8 (8.5-10.3) mg/dL Magnesium 2.0 (1.7-2.3) mg/dL 11/16/24 11/16/24 Range/Units 16:53 12:06 Sodium (135-145) mmol/L Potassium (3.5-4.5) mmol/L Chloride (101-111) mmol/L Carbon Dioxide (21-32) mmol/L Anion Gap (6-13) BUN (6-20) mg/dL Creatinine (0.6-1.3) mg/dL Estimated GFR (MDRD) (>89) Glucose (74-104) mg/dL POC Whole Bld Glucose 218 218 (70-100) mg/dL Calcium (8.5-10.3) mg/dL Magnesium (1.7-2.3) mg/dL ABX Reporting Has patient been on IV antibiotics over the past 48 hours?: Yes Assessment/Plan Problem List (1) Bradycardia: Impression: Resolved. No recorded bradycardic events in over 24 hours. - Continue to hold carvedilol (2) UTI (urinary tract infection): Impression: No acute urinary symptoms of dysuria, suprapubic discomfort, CVA tenderness. Culture and sensitivity shows E. coli, resistant to Bactrim, and proteus, resistant to Nitrofurantoin. She has already received 1 dose of IV ceftriaxone. - Continue IV ceftriaxone while inpatient. We will change to PO antibiotics upon discharge to complete 5-7 day course. Qualifiers: Hematuria presence: without hematuria Urinary tract infection type: s ite unspecified Qualified Code(s): N39.0 - Urinary tract infection, site not specified (3) Generalized weakness: Impression: Chronic condition likely worsened by acute UTI. - Daily OT/PT. Plan for d/c to SNF. (4) Repeated falls: Impression: Chronic condition likely worsened by acute UTI. - Daily OT/PT (5) Type 2 diabetes mellitus with peripheral neuropathy: Impression: Blood sugars remain well controlled with no concerning symptoms. - Continue sliding scale insulin (6) Congestive heart failure (CHF): Impression: No acute exacerbation - no edema, chest congestion, JVD. - Continue home medications. Qualifiers: Heart failure chronicity: unspecified Heart failure type: unspecified Qualified Code(s): I50.9 - Heart failure, unspecified
[2024-11-17] MEDS: HYDROcod/ACETAM 5/325 MG TABLET PO PRN (10:29)
[2024-11-17] MEDS: IPRATROPIUM 0.2 MG/ML NEB INH SCH (18:14)
--- NOTE | 2024-11-18 08:50 | PROVIDER PROGRESS NOTE ---
Subjective Subjective Subjective: Patient is fully awake and alert, sitting upright in bed. She has some leg pain (chronic) but otherwise feels very well. No chest pain, chest congestion, SOB, abdominal discomfort, suprapubic discomfort, dysuria, changes in urinary frequency or urgency. She has some urinary incontinence at baseline which is unchanged. She reports she has been sleeping very well. This morning, she had increased pain in her legs. We are trying an extra dose of [place]. She expresses that she is bored, but understands that she needs some rehab. She is medically stable for discharge - awaiting placement to SNF. Current Medications Current Medications Current Medications: Current Medications Generic Name Dose Route Start Last Admin Trade Name Freq PRN Reason Stop Dose Admin Acetaminophen 650 mg 11/16/24 12:45 Acetaminophen 325 Mg Tablet PO Q4HR PRN Mild Pain or Fever > 38C Hydrocodone Bitart/Acetaminophen 1 tab 11/17/24 08:46 11/17/24 21:20 Hydrocod/Acetam 5/325 Mg Tablet PO 1 tab TID PRN Administration Radiculopathy Aspirin 81 mg 11/15/24 16:02 11/18/24 08:08 Aspirin Ec 81 Mg Tablet PO 81 mg DAILY CAROLE Administration Atorvastatin Calcium 80 mg 11/16/24 09:00 11/18/24 08:08 Atorvastatin 40 Mg Tablet PO 80 mg DAILY CAROLE Administration Budesonide 0.5 mg 11/15/24 19:00 11/18/24 05:21 Budesonide 0.5 Mg/2 Ml Neb INH 0.5 mg RTBID CAROLE Administration Ceftriaxone Sodium 1 gm 11/16/24 11:00 11/18/24 08:07 Ceftriaxone 1 Gm Vial IVP 1 gm DAILY CAROLE Administration Formoterol Fumarate 20 mcg 11/15/24 19:00 11/18/24 05:20 Formoterol Fumarate Neb 20 Mcg/2 Ml INH 20 mcg RTBID CAROLE Administration Gabapentin 100 mg 11/15/24 22:00 11/18/24 06:16 Gabapentin 100 Mg Capsule PO 100 mg TID CAROLE Administration Ibuprofen 400 mg 11/16/24 12:45 11/16/24 13:29 Ibuprofen 400 Mg Tablet PO 400 mg Q6HR PRN Administration Moderate Pain (Level 4-6) Insulin Human Lispro 1 - 9 unit 11/16/24 21:00 11/18/24 08:07 Insulin Lispro 300 Unit/3 Ml Pen SUBQ 3 unit 0800,1200,1700,2100 CAROLE Administration Protocol Ipratropium [place] 0.5 mg 11/17/24 19:00 11/18/24 05:21 Ipratropium 0.2 Mg/Ml Neb INH 0.5 mg RTTID CAROLE Administration Patient Own Med ( 1 each 11/16/24 09:00 11/18/24 08:08 Jardiance 25mg) PO Not Given DAILY CAROLE Pregabalin 75 mg 11/15/24 21:00 11/18/24 08:07 Pregabalin 25 Mg Capsule PO 75 mg BID CAROLE Administration Ropinirole HCl 1 mg 11/16/24 09:00 11/18/24 08:08 Ropinirole 1 Mg Tablet PO 1 mg DAILY CAROLE Administration Ropinirole HCl 2 mg 11/15/24 21:00 11/17/24 21:20 Ropinirole 1 Mg Tablet PO 2 mg QPM CAROLE Administration Sodium Chloride 10 ml 11/15/24 16:02 Sodium Chloride Flush 0.9% 10 Ml Syringe IVP PRN PRN NEEDED PER PROVIDER ORDERS Sodium Chloride 10 ml 11/15/24 17:00 11/18/24 08:08 Sodium Chloride Flush 0.9% 10 Ml Syringe IVP 10 ml 0100,0900,1700 CAROLE Administration Sterile Water 10 ml 11/16/24 11:00 11/18/24 08:07 Water For Injection,Sterile 10 Ml Vial MC 10 ml DAILY CAROLE Administration Torsemide 10 mg 11/15/24 16:02 11/18/24 08:08 Torsemide 20 Mg Tablet PO 10 mg DAILY CAROLE Administration Zolpidem Tartrate 5 mg 11/15/24 16:41 Zolpidem 5 Mg Tablet PO QPM PRN Insomnia Objective Vital Signs/Intake & Output Reviewed Vital Signs: Yes Vital Signs: Vital Signs x48h Temp Pulse Pulse Resp BP Pulse Ox 11/18/24 07:42 97.5 F L 64 20 134/63 H 92 11/18/24 05:24 65 16 11/18/24 05:20 97.7 F 73 16 145/73 H 93 Intake & Output: Intake & Output 11/15/24 11/16/24 11/17/24 11/18/24 23:59 23:59 23:59 23:59 Intake Total 1540 / 1540 660 / 660 640 / 640 Output Total 100 / 100 3150 / 3150 550 / 550 200 / 200 Balance 1440 / 1440 -2490 / -2490 90 / 90 -200 / -200 Weight (kg) 99 kg Objective General Appearance: positive No acute distress and Alert Eyes Bilateral: positive Normal inspection and PERRL ENT: positive ENT inspection nml Neck: positive Nml inspection and No JVD Respiratory: positive Chest non-tender, No respiratory distress and Breath sounds nml; negative Wheezes Cardiovascular: positive Regular rate & rhythm Abdomen: positive Non-tender, Nml bowel sounds and No distention Back: positive Nml inspection Skin: positive Color nml and Dry Extremities: positive Nml appearance, No pedal edema, Calf tenderness (chronic calf pain, worse with palpation. No acute changes, no edema, erythema, wounds) and Other (bilateral leg pain (chronic) with increased pain at both knees. No edema, erythema, wounds, ); negative Non-tender Neurologic/Psychiatric: positive Oriented x3, CN's nml (2-12), Motor nml, Sensation nml and Mood/affect nml Lab Results 11/15/24 12:11 11/17/24 05:29 Other Labs: Lab Results x24hrs 11/18/24 11/18/24 11/17/24 Range/Units 07:59 07:37 20:41 POC Whole Bld Glucose 192 188 241 (70-100) mg/dL 11/17/24 11/17/24 Range/Units 16:41 11:38 POC Whole Bld Glucose 209 213 (70-100) mg/dL ABX Reporting Has patient been on IV antibiotics over the past 48 hours?: Yes Assessment/Plan Problem List (1) Bradycardia: Impression: Resolved. No recorded bradycardic events in over 24 hours. - Continue to hold carvedilol (2) UTI (urinary tract infection): Impression: No acute urinary symptoms of dysuria, suprapubic discomfort, CVA tenderness at this time. Culture and sensitivity shows E. coli, resistant to Bactrim, and proteus, resistant to Nitrofurantoin. - Continue IV ceftriaxone while inpatient. We will change to PO antibiotics upon discharge to complete 5-7 day course. Qualifiers: Hematuria presence: without hematuria Urinary tract infection type: s ite unspecified Qualified Code(s): N39.0 - Urinary tract infection, site not specified (3) Generalized weakness: Impression: Chronic condition likely worsened by acute UTI. - Daily OT/PT. Plan for d/c to SNF. (4) Repeated falls: Impression: Chronic condition likely worsened by acute UTI. - Daily OT/PT (5) Type 2 diabetes mellitus with peripheral neuropathy: Impression: Blood sugars remain well controlled with no concerning symptoms. - Continue sliding scale insulin (6) Congestive heart failure (CHF): Impression: No acute exacerbation - no edema, chest congestion, JVD. - Continue home medications. Qualifiers: Heart failure chronicity: unspecified Heart failure type: unspecified Qualified Code(s): I50.9 - Heart failure, unspecified
[2024-11-18] MEDS: HYDROcod/ACETAM 5/325 MG TABLET PO STA (09:28)
[2024-11-18] MEDS: ZOLPIDEM 5 MG TABLET PO PRN (21:09)
--- NOTE | 2024-11-19 11:17 | PROVIDER PROGRESS NOTE ---
Subjective Subjective Subjective: Patient is fully awake and alert, sitting upright in bed. She has some leg pain (chronic) but otherwise feels very well. No chest pain, chest congestion, SOB, abdominal discomfort, suprapubic discomfort, dysuria, changes in urinary frequency or urgency. She has some urinary incontinence at baseline which is unchanged. She reports she has been sleeping very well. She expresses that she is bored, but understands that she needs some rehab. Yesterday, we did her serum nicotine test. It will take a few days to arrive. She needs this for surgical clearance. She is medically stable for discharge - awaiting placement to SNF. Current Medications Current Medications Current Medications: Current Medications Generic Name Dose Route Start Last Admin Trade Name Freq PRN Reason Stop Dose Admin Acetaminophen 650 mg 11/16/24 12:45 Acetaminophen 325 Mg Tablet PO Q4HR PRN Mild Pain or Fever > 38C Hydrocodone Bitart/Acetaminophen 1 tab 11/17/24 08:46 11/19/24 08:10 Hydrocod/Acetam 5/325 Mg Tablet PO 1 tab TID PRN Administration Radiculopathy Aspirin 81 mg 11/15/24 16:02 11/19/24 08:09 Aspirin Ec 81 Mg Tablet PO 81 mg DAILY CAROLE Administration Atorvastatin Calcium 80 mg 11/16/24 09:00 11/19/24 08:09 Atorvastatin 40 Mg Tablet PO 80 mg DAILY CAROLE Administration Budesonide 0.5 mg 11/15/24 19:00 11/19/24 07:11 Budesonide 0.5 Mg/2 Ml Neb INH 0.5 mg RTBID CAROLE Administration Ceftriaxone Sodium 1 gm 11/16/24 11:00 11/19/24 08:09 Ceftriaxone 1 Gm Vial IVP 1 gm DAILY CAROLE Administration Formoterol Fumarate 20 mcg 11/15/24 19:00 11/19/24 07:11 Formoterol Fumarate Neb 20 Mcg/2 Ml INH 20 mcg RTBID CAROLE Administration Gabapentin 100 mg 11/15/24 22:00 11/19/24 06:21 Gabapentin 100 Mg Capsule PO 100 mg TID CAROLE Administration Ibuprofen 400 mg 11/16/24 12:45 11/19/24 08:10 Ibuprofen 400 Mg Tablet PO 400 mg Q6HR PRN Administration Moderate Pain (Level 4-6) Insulin Human Lispro 1 - 9 unit 11/16/24 21:00 11/19/24 08:09 Insulin Lispro 300 Unit/3 Ml Pen SUBQ 1 unit 0800,1200,1700,2100 CAROLE Administration Protocol Ipratropium [place] 0.5 mg 11/17/24 19:00 11/19/24 07:11 Ipratropium 0.2 Mg/Ml Neb INH 0.5 mg RTTID CAROLE Administration Patient Own Med ( 1 each 11/16/24 09:00 11/19/24 08:11 Jardiance 25mg) PO Not Given DAILY CAROLE Pregabalin 75 mg 11/15/24 21:00 11/19/24 08:10 Pregabalin 25 Mg Capsule PO 75 mg BID CAROLE Administration Ropinirole HCl 1 mg 11/16/24 09:00 11/19/24 08:10 Ropinirole 1 Mg Tablet PO 1 mg DAILY CAROLE Administration Ropinirole HCl 2 mg 11/15/24 21:00 11/18/24 21:10 Ropinirole 1 Mg Tablet PO 2 mg QPM CAROLE Administration Sodium Chloride 10 ml 11/15/24 16:02 Sodium Chloride Flush 0.9% 10 Ml Syringe IVP PRN PRN NEEDED PER PROVIDER ORDERS Sodium Chloride 10 ml 11/15/24 17:00 11/19/24 08:11 Sodium Chloride Flush 0.9% 10 Ml Syringe IVP 10 ml 0100,0900,1700 CAROLE Administration Sterile Water 10 ml 11/16/24 11:00 11/19/24 08:09 Water For Injection,Sterile 10 Ml Vial MC 10 ml DAILY CAROLE Administration Torsemide 10 mg 11/15/24 16:02 11/19/24 08:11 Torsemide 20 Mg Tablet PO 10 mg DAILY CAROLE Administration Zolpidem Tartrate 5 mg 11/15/24 16:41 11/18/24 21:09 Zolpidem 5 Mg Tablet PO 5 mg QPM PRN Administration Insomnia Objective Vital Signs/Intake & Output Reviewed Vital Signs: Yes Vital Signs: Vital Signs x48h Temp Pulse Pulse Resp BP Pulse Ox 11/19/24 09:00 97.5 F L 67 20 124/44 L 91 L 11/19/24 07:13 66 18 11/19/24 05:00 97.9 F 67 20 146/63 H 90 L Intake & Output: Intake & Output 11/16/24 11/17/24 11/18/24 11/19/24 23:59 23:59 23:59 23:59 Intake Total 660 / 660 640 / 640 1100 / 1100 100 / 100 Output Total 3150 / 3150 550 / 550 850 / 850 175 / 175 Balance -2490 / -2490 90 / 90 250 / 250 -75 / -75 Objective General Appearance: positive No acute distress and Alert Eyes Bilateral: positive Normal inspection and PERRL ENT: positive ENT inspection nml Neck: positive Nml inspection and No JVD Respiratory: positive Chest non-tender, No respiratory distress and Breath sounds nml; negative Wheezes Cardiovascular: positive Regular rate & rhythm Abdomen: positive Non-tender, Nml bowel sounds and No distention Back: positive Nml inspection Skin: positive Color nml and Dry Extremities: positive Nml appearance, No pedal edema, Calf tenderness (chronic calf pain, worse with palpation. No acute changes, no edema, erythema, wounds) and Other (bilateral leg pain (chronic) with increased pain at both knees. No edema, erythema, wounds, ); negative Non-tender Neurologic/Psychiatric: positive Oriented x3, CN's nml (2-12), Motor nml, Sensation nml and Mood/affect nml Lab Results 11/15/24 12:11 11/17/24 05:29 Other Labs: Lab Results x24hrs 11/19/24 11/18/24 11/18/24 Range/Units 07:51 20:30 16:44 POC Whole Bld Glucose 180 217 221 (70-100) mg/dL SARS-CoV-2 (PCR) 11/18/24 11/18/24 Range/Units 12:00 11:36 POC Whole Bld Glucose 213 (70-100) mg/dL SARS-CoV-2 (PCR) NOT DETECTED ABX Reporting Has patient been on IV antibiotics over the past 48 hours?: Yes Assessment/Plan Problem List (1) Bradycardia: Impression: Resolved. No recorded bradycardic events in over 24 hours. - Continue to hold carvedilol (2) UTI (urinary tract infection): Impression: No acute urinary symptoms of dysuria, suprapubic discomfort, CVA tenderness at this time. Culture and sensitivity shows E. coli, resistant to Bactrim, and proteus, resistant to Nitrofurantoin. - Continue IV ceftriaxone while inpatient. Today is day 4/5. Qualifiers: Hematuria presence: without hematuria Urinary tract infection type: s ite unspecified Qualified Code(s): N39.0 - Urinary tract infection, site not specified (3) Generalized weakness: Impression: Chronic condition likely worsened by acute UTI. - Daily OT/PT. Plan for d/c to SNF. (4) Repeated falls: Impression: Chronic condition likely worsened by acute UTI. - Daily OT/PT (5) Type 2 diabetes mellitus with peripheral neuropathy: Impression: Blood sugars remain well controlled with no concerning symptoms. - Continue sliding scale insulin (6) Congestive heart failure (CHF): Impression: No acute exacerbation - no edema, chest congestion, JVD. - Continue home medications. Qualifiers: Heart failure chronicity: unspecified Heart failure type: unspecified Qualified Code(s): I50.9 - Heart failure, unspecified
[2024-11-19] MEDS: INSULIN LISPRO 300 UNIT/3 ML PEN SUBQ SCH (18:10)
[2024-11-20 05:00] LABS: HCT - HEMATOCRIT 37.5 % (37.0-47.0); HGB - HEMOGLOBIN 12.2 g/dL (12.0-16.0); MEAN CORPUSCULAR HEMOGLOBIN 28.8 pg (27.0-31.0); MEAN CORPUSCULAR HGB CONC 32.5 g/dL (32.0-36.0); MEAN CORPUSCULAR VOLUME 88.4 fL (81.0-99.0); MEAN PLATELET VOLUME 9.9 fL (7.9-10.8); RED BLOOD COUNT 4.24 10^6/uL (4.20-5.40); RED CELL DISTRIBUTION WIDTH 15.6 % (12.0-15.0); WHITE BLOOD COUNT 7.4 x10^3/uL (4.8-10.8)
[2024-11-20 05:12] LABS: CALCIUM 9.3 mg/dL (8.5-10.3); CREATININE 1.4 mg/dL (0.6-1.3); POTASSIUM 3.8 mmol/L (3.5-4.5)
[2024-11-20] MEDS: SENNA 8.6 MG TABLET PO SCH (08:21)
[2024-11-20] MEDS: DOCUSATE SODIUM 250 MG CAPSULE PO SCH (08:21)
[2024-11-20] MEDS: GABAPENTIN 100 MG CAPSULE PO ONE (11:34)
[2024-11-20] MEDS: HYDROcod/ACETAM 5/325 MG TABLET PO PRN (11:34)
--- NOTE | 2024-11-20 13:37 | PROVIDER PROGRESS NOTE ---
Subjective Subjective Subjective: Patient is fully awake and alert, sitting upright in bed. She has some leg pain (chronic) but otherwise feels very well. No chest pain, chest congestion, SOB, abdominal discomfort, suprapubic discomfort, dysuria, changes in urinary frequency or urgency. She has some urinary incontinence at baseline which is unchanged. She reports she has been sleeping very well. She expresses that she is bored, but understands that she needs some rehab. Yesterday, we did her serum nicotine test. It will take a few days to arrive. She needs this for surgical clearance. She continues to have some pain shooting down her legs. She is on her home dose of gabapentin, Lyrica, as well as Requip. Will give her an extra dose of gabapentin this morning to see if that helps (200 mg instead of 100mg). She is medically stable for discharge - awaiting placement to SNF. Current Medications Current Medications Current Medications: Current Medications Generic Name Dose Route Start Last Admin Trade Name Freq PRN Reason Stop Dose Admin Acetaminophen 650 mg 11/16/24 12:45 Acetaminophen 325 Mg Tablet PO Q4HR PRN Mild Pain or Fever > 38C Hydrocodone Bitart/Acetaminophen 1 tab 11/20/24 10:02 11/20/24 11:34 Hydrocod/Acetam 5/325 Mg Tablet PO 1 tab Q4HR PRN Administration Radiculopathy Aspirin 81 mg 11/15/24 16:02 11/20/24 08:12 Aspirin Ec 81 Mg Tablet PO 81 mg DAILY CAROLE Administration Atorvastatin Calcium 80 mg 11/16/24 09:00 11/20/24 08:11 Atorvastatin 40 Mg Tablet PO 80 mg DAILY CAROLE Administration Budesonide 0.5 mg 11/15/24 19:00 11/20/24 07:08 Budesonide 0.5 Mg/2 Ml Neb INH 0.5 mg RTBID CAROLE Administration Ceftriaxone Sodium 1 gm 11/16/24 11:00 11/20/24 08:12 Ceftriaxone 1 Gm Vial IVP 1 gm DAILY CAROLE Administration Docusate Sodium 250 - 500 mg 11/20/24 09:00 11/20/24 08:21 Docusate Sodium 250 Mg Capsule PO 250 mg DAILY CAROLE Administration Formoterol Fumarate 20 mcg 11/15/24 19:00 11/20/24 07:08 Formoterol Fumarate Neb 20 Mcg/2 Ml INH 20 mcg RTBID CAROLE Administration Gabapentin 100 mg 11/15/24 22:00 11/20/24 06:09 Gabapentin 100 Mg Capsule PO 100 mg TID CAROLE Administration Ibuprofen 400 mg 11/16/24 12:45 11/20/24 08:11 Ibuprofen 400 Mg Tablet PO 400 mg Q6HR PRN Administration Moderate Pain (Level 4-6) Insulin Human Lispro 2 - 10 unit 11/19/24 17:00 11/20/24 11:35 Insulin Lispro 300 Unit/3 Ml Pen SUBQ 6 unit 0800,1200,1700,2100 CAROLE Administration Protocol Ipratropium [place] 0.5 mg 11/17/24 19:00 11/20/24 07:08 Ipratropium 0.2 Mg/Ml Neb INH 0.5 mg RTTID CAROLE Administration Patient Own Med ( 1 each 11/16/24 09:00 11/20/24 08:13 Jardiance 25mg) PO Not Given DAILY CAROLE Pregabalin 75 mg 11/15/24 21:00 11/20/24 08:11 Pregabalin 25 Mg Capsule PO 75 mg BID CAROLE Administration Ropinirole HCl 1 mg 11/16/24 09:00 11/20/24 08:12 Ropinirole 1 Mg Tablet PO 1 mg DAILY CAROLE Administration Ropinirole HCl 2 mg 11/15/24 21:00 11/19/24 20:40 Ropinirole 1 Mg Tablet PO 2 mg QPM CAROLE Administration Senna 8.6 - 17.2 mg 11/20/24 09:00 11/20/24 08:21 Senna 8.6 Mg Tablet PO 8.6 mg DAILY CAROLE Administration Sodium Chloride 10 ml 11/15/24 16:02 Sodium Chloride Flush 0.9% 10 Ml Syringe IVP PRN PRN NEEDED PER PROVIDER ORDERS Sodium Chloride 10 ml 11/15/24 17:00 11/20/24 08:12 Sodium Chloride Flush 0.9% 10 Ml Syringe IVP 10 ml 0100,0900,1700 CAROLE Administration Sterile Water 10 ml 11/16/24 11:00 11/20/24 08:12 Water For Injection,Sterile 10 Ml Vial MC 10 ml DAILY CAROLE Administration Torsemide 10 mg 11/15/24 16:02 11/20/24 08:12 Torsemide 20 Mg Tablet PO 10 mg DAILY CAROLE Administration Zolpidem Tartrate 5 mg 11/15/24 16:41 11/18/24 21:09 Zolpidem 5 Mg Tablet PO 5 mg QPM PRN Administration Insomnia Objective Vital Signs/Intake & Output Reviewed Vital Signs: Yes Vital Signs: Vital Signs x48h Temp Pulse Pulse Pulse Resp BP Pulse Ox 11/20/24 11:20 97.7 F 64 20 128/52 L 95 11/20/24 07:40 98.1 F 77 22 162/75 H 93 11/20/24 07:09 68 18 Intake & Output: Intake & Output 11/17/24 11/18/24 11/19/24 11/20/24 23:59 23:59 23:59 23:59 Intake Total 640 / 640 1100 / 1100 890 / 890 750 / 750 Output Total 550 / 550 850 / 850 675 / 675 500 / 500 Balance 90 / 90 250 / 250 215 / 215 250 / 250 Objective General Appearance: positive No acute distress and Alert Eyes Bilateral: positive Normal inspection and PERRL ENT: positive ENT inspection nml Neck: positive Nml inspection and No JVD Respiratory: positive Chest non-tender, No respiratory distress and Breath sounds nml; negative Wheezes Cardiovascular: positive Regular rate & rhythm Abdomen: positive Non-tender, Nml bowel sounds and No distention Back: positive Nml inspection Skin: positive Color nml and Dry Extremities: positive Nml appearance, No pedal edema, Calf tenderness (chronic calf pain, worse with palpation. No acute changes, no edema, erythema, wounds) and Other (bilateral leg pain (chronic) with increased pain at both knees. No edema, erythema, wounds, ); negative Non-tender Neurologic/Psychiatric: positive Oriented x3, CN's nml (2-12), Motor nml, Sensation nml and Mood/affect nml Lab Results 11/20/24 04:49 11/20/24 04:49 Other Labs: Lab Results x24hrs 11/20/24 11/20/24 11/20/24 Range/Units 11:25 07:45 04:49 WBC 7.4 (4.8-10.8) x10^3/uL RBC 4.24 (4.20-5.40) 10^6/uL Hgb 12.2 (12.0-16.0) g/dL Hct 37.5 (37.0-47.0) % MCV 88.4 (81.0-99.0) fL MCH 28.8 (27.0-31.0) pg MCHC 32.5 (32.0-36.0) g/dL RDW 15.6 H (12.0-15.0) % Plt Count 137 (130-450) 10^3/uL MPV 9.9 (7.9-10.8) fL Sodium 137 (135-145) mmol/L Potassium 3.8 (3.5-4.5) mmol/L Chloride 104 (101-111) mmol/L Carbon Dioxide 26 (21-32) mmol/L Anion Gap 7.0 (6-13) BUN 29 H (6-20) mg/dL Creatinine 1.4 H (0.6-1.3) mg/dL Estimated GFR (MDRD) 36 L (>89) Glucose 160 H (74-104) mg/dL POC Whole Bld Glucose 250 173 (70-100) mg/dL Calcium 9.3 (8.5-10.3) mg/dL 11/19/24 11/19/24 Range/Units 20:41 16:41 WBC (4.8-10.8) x10^3/uL RBC (4.20-5.40) 10^6/uL Hgb (12.0-16.0) g/dL Hct (37.0-47.0) % MCV (81.0-99.0) fL MCH (27.0-31.0) pg MCHC (32.0-36.0) g/dL RDW (12.0-15.0) % Plt Count (130-450) 10^3/uL MPV (7.9-10.8) fL Sodium (135-145) mmol/L Potassium (3.5-4.5) mmol/L Chloride (101-111) mmol/L Carbon Dioxide (21-32) mmol/L Anion Gap (6-13) BUN (6-20) mg/dL Creatinine (0.6-1.3) mg/dL Estimated GFR (MDRD) (>89) Glucose (74-104) mg/dL POC Whole Bld Glucose 245 244 (70-100) mg/dL Calcium (8.5-10.3) mg/dL ABX Reporting Has patient been on IV antibiotics over the past 48 hours?: Yes Assessment/Plan Problem List (1) Bradycardia: Impression: Resolved. No recorded bradycardic events in over 24 hours. - Continue to hold carvedilol (2) UTI (urinary tract infection): Impression: No acute urinary symptoms of dysuria, suprapubic discomfort, CVA tenderness at this time. Culture and sensitivity shows E. coli, resistant to Bactrim, and proteus, resistant to Nitrofurantoin. - Continue IV ceftriaxone while inpatient. Today is 01/23. Qualifiers: Urinary tract infection type: site unspecified Hematuria presence: w ithout hematuria Qualified Code(s): N39.0 - Urinary tract infection, site not specified (3) Generalized weakness: Impression: Chronic condition likely worsened by acute UTI. - Daily OT/PT. Plan for d/c to SNF. (4) Repeated falls: Impression: Chronic condition likely worsened by acute UTI. - Daily OT/PT (5) Type 2 diabetes mellitus with peripheral neuropathy: Impression: Blood sugars remain well controlled with no concerning symptoms. - Continue sliding scale insulin (6) Congestive heart failure (CHF): Impression: No acute exacerbation - no edema, chest congestion, JVD. - Continue home medications. Qualifiers: Heart failure type: unspecified Heart failure chronicity: unspecified Qualified Code(s): I50.9 - Heart failure, unspecified
[2024-11-20] MEDS: INSULIN LISPRO 300 UNIT/3 ML PEN SUBQ SCH (17:12)
--- NOTE | 2024-11-21 09:21 | PROVIDER PROGRESS NOTE ---
Subjective Subjective Subjective: Patient is fully awake and alert, sitting upright in bed. She has some leg pain (chronic) but otherwise feels very well. No chest pain, chest congestion, SOB, abdominal discomfort, suprapubic discomfort, dysuria, changes in urinary frequency or urgency. She has some urinary incontinence at baseline which is unchanged. She reports she has been sleeping very well. She expresses that she is bored, but understands that she needs some rehab. Yesterday, we did her serum nicotine test. It will take a few days to arrive. She needs this for surgical clearance. Today, she feels like she has pain down her left leg. She is on both Lyrica and gabapentin, getting [place] as needed, as well as Motrin as needed. She also gets Requip for her restless leg syndrome. She understands that she needs surgery, and rehab to help with this pain. She is medically stable for discharge - awaiting placement to SNF. Current Medications Current Medications Current Medications: Current Medications Generic Name Dose Route Start Last Admin Trade Name Freq PRN Reason Stop Dose Admin Acetaminophen 650 mg 11/16/24 12:45 Acetaminophen 325 Mg Tablet PO Q4HR PRN Mild Pain or Fever > 38C Hydrocodone Bitart/Acetaminophen 1 tab 11/20/24 10:02 11/21/24 05:53 Hydrocod/Acetam 5/325 Mg Tablet PO 1 tab Q4HR PRN Administration Radiculopathy Aspirin 81 mg 11/15/24 16:02 11/21/24 08:06 Aspirin Ec 81 Mg Tablet PO 81 mg DAILY CAROLE Administration Atorvastatin Calcium 80 mg 11/16/24 09:00 11/21/24 08:07 Atorvastatin 40 Mg Tablet PO 80 mg DAILY CAROLE Administration Budesonide 0.5 mg 11/15/24 19:00 11/21/24 07:37 Budesonide 0.5 Mg/2 Ml Neb INH 0.5 mg RTBID CAROLE Administration Docusate Sodium 250 - 500 mg 11/20/24 09:00 11/21/24 08:06 Docusate Sodium 250 Mg Capsule PO 250 mg DAILY CAROLE Administration Formoterol Fumarate 20 mcg 11/15/24 19:00 11/21/24 07:37 Formoterol Fumarate Neb 20 Mcg/2 Ml INH 20 mcg RTBID CAROLE Administration Gabapentin 100 mg 11/15/24 22:00 11/21/24 05:53 Gabapentin 100 Mg Capsule PO 100 mg TID CAROLE Administration Ibuprofen 400 mg 11/16/24 12:45 11/20/24 08:11 Ibuprofen 400 Mg Tablet PO 400 mg Q6HR PRN Administration Moderate Pain (Level 4-6) Insulin Human Lispro 3 - 11 unit 11/20/24 17:00 11/21/24 08:05 Insulin Lispro 300 Unit/3 Ml Pen SUBQ 3 unit 0800,1200,1700,2100 CAROLE Administration Protocol Ipratropium [place] 0.5 mg 11/17/24 19:00 11/21/24 07:37 Ipratropium 0.2 Mg/Ml Neb INH 0.5 mg RTTID CAROLE Administration Patient Own Med ( 1 each 11/16/24 09:00 11/21/24 08:07 Jardiance 25mg) PO Not Given DAILY CAROLE Pregabalin 75 mg 11/15/24 21:00 11/21/24 08:06 Pregabalin 25 Mg Capsule PO 75 mg BID CAROLE Administration Ropinirole HCl 1 mg 11/16/24 09:00 11/21/24 08:07 Ropinirole 1 Mg Tablet PO 1 mg DAILY CAROLE Administration Ropinirole HCl 2 mg 11/15/24 21:00 11/20/24 20:51 Ropinirole 1 Mg Tablet PO 2 mg QPM CAROLE Administration Senna 8.6 - 17.2 mg 11/20/24 09:00 11/21/24 08:07 Senna 8.6 Mg Tablet PO 8.6 mg DAILY CAROLE Administration Sodium Chloride 10 ml 11/15/24 16:02 Sodium Chloride Flush 0.9% 10 Ml Syringe IVP PRN PRN NEEDED PER PROVIDER ORDERS Sodium Chloride 10 ml 11/15/24 17:00 11/21/24 08:07 Sodium Chloride Flush 0.9% 10 Ml Syringe IVP 10 ml 0100,0900,1700 CAROLE Administration Torsemide 10 mg 11/15/24 16:02 11/21/24 08:06 Torsemide 20 Mg Tablet PO 10 mg DAILY CAROLE Administration Zolpidem Tartrate 5 mg 11/15/24 16:41 11/18/24 21:09 Zolpidem 5 Mg Tablet PO 5 mg QPM PRN Administration Insomnia Objective Vital Signs/Intake & Output Reviewed Vital Signs: Yes Vital Signs: Vital Signs x48h Temp Pulse Pulse Resp BP BP Pulse Ox 11/21/24 08:29 98.4 F 66 18 127/56 L 92 11/21/24 07:38 84 18 11/21/24 05:45 99.0 F 72 22 137/71 H 92 Intake & Output: Intake & Output 11/18/24 11/19/24 11/20/24 11/21/24 23:59 23:59 23:59 23:59 Intake Total 1100 / 1100 890 / 890 1200 / 1200 440 / 440 Output Total 850 / 850 675 / 675 1000 / 1000 1050 / 1050 Balance 250 / 250 215 / 215 200 / 200 -610 / -610 Objective General Appearance: positive No acute distress and Alert Eyes Bilateral: positive Normal inspection and PERRL ENT: positive ENT inspection nml Neck: positive Nml inspection and No JVD Respiratory: positive Chest non-tender, No respiratory distress and Breath sounds nml; negative Wheezes Cardiovascular: positive Regular rate & rhythm Abdomen: positive Non-tender, Nml bowel sounds and No distention Back: positive Nml inspection Skin: positive Color nml and Dry Extremities: positive Nml appearance, No pedal edema, Calf tenderness (chronic calf pain, worse with palpation. No acute changes, no edema, erythema, wounds) and Other (bilateral leg pain (chronic) with increased pain at both knees. No edema, erythema, wounds, ); negative Non-tender Neurologic/Psychiatric: positive Oriented x3, CN's nml (2-12), Motor nml, Sensation nml and Mood/affect nml Lab Results 11/20/24 04:49 11/20/24 04:49 Other Labs: Lab Results x24hrs 11/21/24 11/20/24 11/20/24 Range/Units 07:31 20:46 16:45 POC Whole Bld Glucose 172 229 240 (70-100) mg/dL 11/20/24 Range/Units 11:25 POC Whole Bld Glucose 250 (70-100) mg/dL ABX Reporting Has patient been on IV antibiotics over the past 48 hours?: Yes Assessment/Plan Problem List (1) Bradycardia: Impression: Resolved. No recorded bradycardic events in over 24 hours. - Continue to hold carvedilol (2) UTI (urinary tract infection): Impression: No acute urinary symptoms of dysuria, suprapubic discomfort, CVA tenderness at this time. Culture and sensitivity shows E. coli, resistant to Bactrim, and proteus, resistant to Nitrofurantoin. - Completed five days of antibiotic treatment. Qualifiers: Hematuria presence: without hematuria Urinary tract infection type: s ite unspecified Qualified Code(s): N39.0 - Urinary tract infection, site not specified (3) Generalized weakness: Impression: Chronic condition likely worsened by acute UTI. - Daily OT/PT. Plan for d/c to SNF. (4) Repeated falls: Impression: Chronic condition likely worsened by acute UTI. - Daily OT/PT (5) Type 2 diabetes mellitus with peripheral neuropathy: Impression: Blood sugars remain well controlled with no concerning symptoms. - Continue sliding scale insulin (6) Congestive heart failure (CHF): Impression: No acute exacerbation - no edema, chest congestion, JVD. - Continue home medications. Qualifiers: Heart failure chronicity: unspecified Heart failure type: unspecified Qualified Code(s): I50.9 - Heart failure, unspecified
[2024-11-21] MEDS: KETOROLAC 15 MG/ML VIAL IVP STA (09:30)
--- NOTE | 2024-11-21 16:10 | OT Plan of Care ---
OT Plan of Care OT Plan of Care: Diagnosis Diagnosis bradycardia Diagnosis UTI Chief Complaint pain, weakness Onset of Chief Complaint [employer] Surgical History (Updated 08/10/24 @ 09:12 by ASH Main) S/P total knee arthroplasty right knee with 2 revisions S/P total hip arthroplasty bilateral S/P cholecystectomy S/P cataract extraction S/P carpal tunnel release Medical History (Updated 11/16/24 @ 14:38 by Satish Morgan MD) History of CVA (cerebrovascular accident) Lacunar History of myocardial infarction 2021 History of TIA (transient ischemic attack) Assessment Assessment Pt is a pleasant 84yo F referred for OT eval d/t BLE pain and limited mobility s/p fall. Admitted with bradycardia and UTI. Pt has extensive medical hx, please see MD note for further details. Notable med hx includes lacunar CVA, NV with stents, RTKA with multiple revisions and BL hip sx , R hip with hardware failure. 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 Pt met supine in bed, A&Ox4, willing to participate with therapy. Performed supine to sit MIN A, sit to stand MIN A, and SPT bed to chair MIN-MOD A using RW with cues for sequencing and safety. Currently MIN A UB, MOD A LB ADL with full set up and increased time. Overall presents with decreased endurance , activity tolerance and ADL status. Will benefit from cont OT services during acute stay. Rec d/c to SNF at this time. Goals - Activities of Daily Living Improve Upper Extremity Modified Independent Dressing to: Improve Lower Extremity Modified Independent Dressing to: Improve Grooming/Hygiene to: Modified Independent Improve Bathing to: Modified Independent Improve Toileting to: Modified Independent Plan Treatment Frequency 1x/day -Discharge Recommendations Discharge Location Shelter Facility Transport Needs at Discharge [facility]
[2024-11-22 05:28] LABS: HCT - HEMATOCRIT 35.9 % (37.0-47.0); HGB - HEMOGLOBIN 11.6 g/dL (12.0-16.0); MEAN CORPUSCULAR HEMOGLOBIN 28.7 pg (27.0-31.0); MEAN CORPUSCULAR HGB CONC 32.3 g/dL (32.0-36.0); MEAN CORPUSCULAR VOLUME 88.9 fL (81.0-99.0); MEAN PLATELET VOLUME 10.1 fL (7.9-10.8); RED BLOOD COUNT 4.04 10^6/uL (4.20-5.40); RED CELL DISTRIBUTION WIDTH 15.5 % (12.0-15.0); WHITE BLOOD COUNT 6.6 x10^3/uL (4.8-10.8)
[2024-11-22 05:40] LABS: CALCIUM 9.2 mg/dL (8.5-10.3); CREATININE 1.3 mg/dL (0.6-1.3); POTASSIUM 3.9 mmol/L (3.5-4.5)
[2024-11-22] MEDS: INSULIN GLARGINE-YFGN 300 UNIT/3 ML PEN SUBQ SCH (08:08)
[2024-11-22 11:44] VITALS: BP 137/56; TEMP 97.3; O2SAT 92
--- NOTE | 2024-11-24 21:17 | Discharge Summary ---
Discharge Summary Admit Date: 11/15/24 Discharge Date: 11/22/24 Discharging Provider: Nayeli Brooks MD Primary Care Provider: RAMAKRISHNA Lakhani Code Status: Attempt Resuscitation Discharge Facility Name: [facility] DIAGNOSES Discharge Diagnoses with Status of Each Condition: 1. Bradycardia due to Coreg 2. UTI 3. Generalized weakness, chronic condition, worsened by acute UTI 4. Repeat falls at home 6. Type 2 diabetes mellitus, controlled, with complication of neuropathy, on long-term insulin 7. Chronic systolic heart failure HPI History of Present Illness: Dena is a 84-year-old female with complex medical history who presents today after a fall. She reports about 1030 this morning she was walking to her bedside commode when her legs suddenly "went out from under me". She fell to the ground and hit her head on the commode. She was unable to stand on her own, EMS helped her up and brought her to the ED. She denies chest pain, dizziness, lightheadedness, loss of consciousness, recent illness. She reports at least 4 falls since January 2024, when she fell and injured her back and hips. She does not recall the reason for this fall. Her DIL states she fell in January 2024 and "sheared a pin off" from her right hip. Since then, she has had consistent and chronic pain of the lower back, both hips, and both legs. She states her most recent fall was about 10 days ago, denies head injury at that time, it was the same cause as today's fall where her legs "just went out". She and her DIL report bradycardia (often in low 40s) for the past 1 year, roughly since her fall in January 2024. They state this has been discussed with her PCP but are unsure of any workup or cause for the bradycardia. She has not seen a Cover Seamer for at least 2 years. She denies ever being symptomatic with her bradycardia - no confusion, dizziness, change in vision, nausea or vomiting, chest pain, palpitations. She states she would not even know it was happening if she was not told about it. She is working with [employer] for her COPD and reports using PulseOx daily to monitor heart rate and oxygen, she is unsure of typical numbers but has been steadily in the 40s and 50s for several months. She had an SD in March 2022 and subsequently had 3 stents placed. Her mobility declined after that heart attack and has continued to worsened. She moved in with her son and [id number] so they can help her. Now she is able to walk a few steps at a time using a cane or walker, but is unsteady on her feet. She requires a bedside commode and assistance with many ADLs. Her diabetes mellitus appears controlled, most recent A1c was 6.4% about 3 months ago. Blood glucose 124 upon entry to ED. She has no concerns about low or high glucose levels. She is unsure of her normal values, but reports it is almost always "within the safe range." She has a continuous glucose monitor in place with electronic alerts. Denies symptoms of hyperglycemia or hypoglycemia including confusion, sweating, shakiness, tachycardia, irritability, vision changes. Her medical history includes obstructive sleep apnea, peripheral vascular disease, stage 3b chronic kidey disease, COPD, coronary artery disease, GERD, essential hypertension, type 2 diabetes mellitus with peripheral neuropathy, and congestive heart failure. She denies history of stroke, however EMR lists prior lacunar CVA and TIA. I will clarify with patient once she and her family are moved to inpatient. Her [id number] helps to manage her health conditions and medications. She has a daily medication organizer that they use to prepare her daily medications. They do not believe there have been any recent mixed or extra medication doses. Her medical team includes PCP Dr. Jojo Nelson in [place], Client Services Director Dr. Lee at [facility] ([place]D), Dr. Hebert Diaz at Neurosurgery, and Dr. Mon at [facility] Heme/Onc (anemia). She lives with her son Lacho, his Shelia, their adult daughter, and their 5 cats. Her hobbies include arts and crafts, including asiya. CONSULTS | PROCEDURES Procedures: Head CT is without acute intracranial process, moderate atrophy and chronic microvascular ischemic changes. Urine culture growing E. coli and Proteus mirabilis. E. coli is resistant to ampicillin, Unasyn, Bactrim. Proteus resistant to nitrofurantoin. HOSPITAL COURSE Hospital Course: The patient was treated for her UTI, and her Coreg was discontinued. Her bradycardia resolved by November 16 and the patient was medically cleared for discharge. It was apparent that she was weak, fatigued, and could not safely be discharged to home and should be treated with physical strengthening through rehabilitation. She was seen and treated by physical therapy while here. Her main problems were chronic leg pain, and she was otherwise comfortable after these initial treatment. Treatment for the UTI was with ceftriaxone. However, after getting the patient ready for discharge, delay occurred due to inability to get insurance authorization for her to be transferred. As such she stayed in the hospital being closely monitored, completing her treatment for UTI until authorization occurred.Her glucose was controlled with sliding scale insulin.The retirement asked that her Ozempic not be prescribed while she was there. Or if she insisted on using Ozempic she would have to bring her own and. We notified the family.Her carvedilol was also held at discharge. We asked her to hold it until she saw her position clerk. She was discharged in stable condition. Temperature was 36.3. Heart rate 74. Respirations 16. 92 O2 sat on room air. Blood pressure 137/56. Pleasant, slightly forgetful elderly female at 5 foot 6 inches tall, 99 kg. Diminished breath sounds at the bases. Slightly congested tone of voice. But no increased respiratory effort or respiratory distress. She is awake and alert. Her main complaint was pain in her legs. Abdomen was soft, nontender with normal bowel sounds. She has chronic calf pain when you palpate her extremities. But no edema or erythema. Oriented to person, place and time. Greater than 30 minutes was spent coordinating discharge. This document was made in part using voice recognition software. While efforts are made to proofread this document, sound alike and grammatical errors may occur. ALLERGIES Allergies Allergy/AdvReac Type Severity Reaction Status Date / Time lisinopril AdvReac Intermediate Unknown Verified 11/15/24 11:43 MEDICATIONS Ambulatory Orders Medication Instructions Recorded Confirmed albuterol sulfate 2.5 mg/3 mL 2.5 mg inhalation Q4H PRN 07/21/24 11/15/24 (0.083 %) solution for nebulization shortness of breath or wheezing aspirin 81 mg tablet,delayed 81 mg PO DAILY 07/21/24 11/15/24 release atorvastatin 80 mg tablet (Lipitor) 80 mg PO DAILY 07/21/24 11/15/24 empagliflozin 25 mg tablet 25 mg PO QDAY 07/21/24 11/15/24 (Jardiance) gabapentin 100 mg capsule 100 mg PO TID 07/21/24 11/15/24 nitroglycerin 0.4 mg sublingual 0.4 mg sublingual [id number] 07/21/24 11/15/24 tablet semaglutide 1 mg/dose (4 mg/3 mL) 1 mg subcut QWEEK 07/21/24 11/15/24 subcutaneous pen injector (Ozempic) torsemide 20 mg tablet (Soaanz) 10 mg PO DAILY 07/21/24 11/15/24 carvedilol 3.125 mg tablet 3.125 mg PO BID #180 tabs 09/12/24 11/15/24 fluticasone fur. 100 mcg-umeclid 1 inh inhalation DAILY #28 ea 10/10/24 11/15/24 62.5 mcg-vilant 25 mcg inhalat.powder (Trelegy Ellipta) insulin NPH-regular 70-30 U-100 30 unit subcut BID 10/24/24 11/15/24 insulin 100 unit/mL subcutaneous pen (Novolin 70-30 FlexPen U-100 Insulin) calcitriol 0.25 mcg capsule 0.25 mcg PO BID 11/15/24 11/15/24 glipizide 10 mg tablet, extended 10 mg PO BID 11/15/24 11/15/24 release 24 hr meloxicam 7.5 mg tablet 7.5 mg PO DAILY PRN pain 11/15/24 11/15/24 pregabalin 75 mg capsule 75 mg PO BID 11/15/24 11/15/24 ropinirole 1 mg tablet See Rx Instructions .Route .COMPLEX 11/15/24 11/15/24 zaleplon 5 mg capsule 5 mg PO HS #30 caps 11/16/24 hydrocodone 5 mg-acetaminophen 325 1 tab PO TID PRN Radiculopathy #15 11/22/24 mg tablet tabs insulin lispro 100 unit/mL 1 sliding scale dose subcut 11/22/24 subcutaneous pen (Humalog KwikPen USEASDIRECTD #15 mL (U-100) Insulin) LABS 11/22/24 04:58 11/22/24 04:58 Discharge Plan Discharge Patient Disposition: [facility] DC/Xfer Condition: Stable Medically Cleared Date:: 11/16/24 Medically Cleared Comments:: waiting for auth from [facility] Prescriptions: New insulin lispro [Humalog KwikPen Insulin] 100 unit/mL insulin pen 1 sliding scale dose subcut USEASDIRECTD Qty: 15 2RF Rx Instructions: Algorithm 141-180 3 unit 181-225 5 units 226-275 7 units 276-325 9 units 326-375 11 units > 375 contact MD Ifrah Foy Tika 100-62.5-25 mcg blister with device 1 inh inhalation DAILY Qty: 28 3RF Rx Instructions: inhale 1 puff as directed once a day zaleplon 5 mg capsule 5 mg PO HS Qty: 30 0RF Rx Instructions: Takd 1 capsule by mouth at bedtime aspirin 81 mg tablet,delayed release (DR/EC) 81 mg PO DAILY Rx Instructions: Take 1 tablet by mouth once a day atorvastatin [Lipitor] 80 mg tablet 80 mg PO DAILY Rx Instructions: Take 1 tablet by mouth every day for cholesterol gabapentin 100 mg capsule 100 mg PO TID Rx Instructions: . nitroglycerin 0.4 mg tablet, sublingual 0.4 mg sublingual [id number] Rx Instructions: Place one tablet under the tongue every 5 minutes as needed for chest pain. Max 3 doses per 15 minutes. If no relief, call 911. glipizide 10 mg tablet extended release 24hr 10 mg PO BID Patient Comments: TAKE 1 TABLET BY MOUTH BEFORE BREAKFAST AND 1 TABLET BEFORE DINNER pregabalin 75 mg capsule 75 mg PO BID Patient Comments: TAKE ONE CAPSULE BY MOUTH TWICE DAILY ropinirole 1 mg tablet See Rx Instructions .ROUTE .COMPLEX Rx Instructions: Take 1 tablet by mouth every morning and 2 tablets by mouth every evening. calcitriol 0.25 mcg capsule 0.25 mcg PO BID meloxicam 7.5 mg tablet 7.5 mg PO DAILY PRN (Reason: pain) Patient Comments: TAKE 1 TABLET BY MOUTH ONCE A DAY WITH FOOD FOR 30 DAYS hydrocodone-acetaminophen 5-325 mg tablet 1 tab PO TID PRN (Reason: Radiculopathy) Qty: 15 0RF albuterol sulfate 2.5 mg /3 mL (0.083 %) solution for nebulization 2.5 mg inhalation Q4H PRN (Reason: shortness of breath or wheezing) Rx Instructions: Inhale 3mL using nebulizer every four hours as needed for wheezing. Jardiance 25 mg tablet 25 mg PO QDAY Rx Instructions: Take one tablet by mouth every day. torsemide [Soaanz] 20 mg tablet 10 mg PO DAILY Rx Instructions: 1/2 tablet every morning Novolin 70-30 FlexPen U-100 100 unit/mL (70-30) insulin pen 30 unit subcut BID Held carvedilol 3.125 mg tablet 3.125 mg PO BID Qty: 180 4RF Hold Instructions: Resume on 11/30/24. please hold until you see your position clerk. Rx Instructions: Take one tablet by mouth twice a day Ozempic 1 mg/dose (4 mg/3 mL) pen injector 1 mg subcut QWEEK Hold Instructions: Resume on 01/18/25. Rx Instructions: Inject 1 mg subcutaneously once a week Discontinued (DME) Accu-Chek Guide test strips Strip See Rx Instructions .Route Rx Instructions: Use 1 strip twice daily (DME) pen needle, diabetic [BD Ultra-Fine Regina Pen Needle] 32 gauge x 5/32" needle See Rx Instructions .Route Rx Instructions: Use one needle daily SQ for insulin injection (DME) walker Misc See Rx Instructions .Route Rx Instructions: As directed Diet: Regular Interventions: Belongings Inventory Last Done: 11/15/24 22:58 Discharge Last Done: 11/22/24 13:46 Discharge Checklist - Nursing Last Done: 11/22/24 13:46 Health Concerns: You came in because you were feeling weak. You were found to have a very slow heart rate. We held your carvedilol, or your Coreg, because it can slow down your heart rate. Your heart rate returned to normal. Please continue to hold this medication. I want you to continue holding this until you see a position clerk. I also want you to see your primary care provider in the next two weeks for a recheck of your blood pressure and heart rate. While you were with us, you completed 5 days of oral antibiotics for urinary tract infection. You are significantly weak, and I understand that you are in preparation for surgery. Physical therapy did work with you and recommended jail facility. I spoke with you and your [id number], and this was not an option at this time as it would be self-pay. But then you were able to identify a separate insurance that you have that would pay. You are now able to be transferred to a rehab facility to get stronger. Please continue to be very careful when you are getting around. Please take your time when getting out of bed. Please minimize your movement. Your [id number] did reassure me that everything is on the same floor when you get home. We hope you continue to gain your strength and that your surgeries go well. We are glad you are feeling better, thank you labs to care of you. Print Language: Macedonian Patient Instructions: Falls Prevent Home, Falls Prevent Exercise Stand Alone Forms: SNF Discharge
== END 2024-11-22 15:41 ==
LOC: ED 11:35 → MS2 11:35
PROVIDERS: ADMIT Internal Medicine; ATTEND Internal Medicine
DX: I50.22 Chronic systolic (congestive) heart failure; G89.29 Other chronic pain; T44.7X5A Adverse effect of beta-adrenoreceptor antagonists, initial encounter; N18.32 Chronic kidney disease, stage 3b; M79.604 Pain in right leg; R53.1 Weakness; E11.22 Type 2 diabetes mellitus with diabetic chronic kidney disease; I13.0 Hypertensive heart and chronic kidney disease with heart failure and stage 1 through stage 4 chronic kidney disease, or unspecified chronic kidney disease; Z79.4 Long term (current) use of insulin; Z95.5 Presence of coronary angioplasty implant and graft; J44.9 Chronic obstructive pulmonary disease, unspecified; M79.605 Pain in left leg; Z79.85 Long-term (current) use of injectable non-insulin antidiabetic drugs; Z91.81 History of falling; R29.6 Repeated falls; N39.0 Urinary tract infection, site not specified; K21.9 Gastro-esophageal reflux disease without esophagitis; Z79.84 Long term (current) use of oral hypoglycemic drugs; I45.2 Bifascicular block; M25.551 Pain in right hip; Y92.003 Bedroom of unspecified non-institutional (private) residence as the place of occurrence of the external cause; I25.10 Atherosclerotic heart disease of native coronary artery without angina pectoris; M54.50 Low back pain, unspecified; Z87.891 Personal history of nicotine dependence; R00.1 Bradycardia, unspecified; M25.552 Pain in left hip; E11.51 Type 2 diabetes mellitus with diabetic peripheral angiopathy without gangrene; R32 Unspecified urinary incontinence; G47.33 Obstructive sleep apnea (adult) (pediatric); I25.2 Old myocardial infarction; R26.81 Unsteadiness on feet; E11.42 Type 2 diabetes mellitus with diabetic polyneuropathy